=== PATIENT | male | born 1965 | race Caucasian/White ===

== ENCOUNTER 2019-07-12 19:00 | Observation (INO) ==
--- NOTE | 2019-07-12 19:30 | DR.GENAD ---
HPI Time Seen Time Seen by Provider: 07/12/19 19:29 PMH PMH Past Medical History: Arthritis, GERD, Hypertension and Sleep Apnea Past Surgical History: Yes Surgical History: Appendectomy and Cholecystectomy Social History Do you use any recreational Drugs:: No infectious screening Isolation: Standard PE Vital Signs Vitals: Temperature 97.7 F Pulse Rate 70 Respiratory Rate 20 Blood Pressure [Left Arm] 148/86 Blood Pressure 119/71 O2 Sat by Pulse Oximetry 96 ROR Labs Reviewed Result Diagrams: 07/12/19 19:40 07/12/19 19:40 Laboratory: WBC 9.6 X10^3/uL (3.6-10.0) 07/12/19 19:40 RBC 4.38 X10^6/uL (4.7-6.0) L 07/12/19 19:40 Hgb 13.5 g/dL (13.5-18.0) 07/12/19 19:40 Hct 37.9 % (42.0-54.0) L 07/12/19 19:40 MCV 86.6 fL (80.0-100.0) 07/12/19 19:40 MCH 30.8 pg (27.0-34.0) 07/12/19 19:40 MCHC 35.6 g/dL (33.0-35.0) H 07/12/19 19:40 RDW 12.5 % (11.6-16.5) 07/12/19 19:40 Plt Count 295 X10^3/uL (150.0-450.0) 07/12/19 19:40 MPV 7.1 fL (7.4-11.0) L 07/12/19 19:40 Neut % (Auto) 71.8 % (42.0-75.0) 07/12/19 19:40 Lymph % (Auto) 21.2 % (21.0-51.0) 07/12/19 19:40 [place] % (Auto) 6.4 % (0.0-13.0) 07/12/19 19:40 Eos % (Auto) 0.5 % (0.9-2.9) L 07/12/19 19:40 Baso % (Auto) 0.1 % (0.2-1.0) L 07/12/19 19:40 Neut # (Auto) 6.9 x10^3/uL (2.2-4.8) H 07/12/19 19:40 Lymph # (Auto) 2.0 X10^3/uL (1.3-2.9) 07/12/19 19:40 [place] # (Auto) 0.6 x10^3/uL (0.3-0.8) 07/12/19 19:40 Eos # (Auto) 0.0 x10^3/uL (0.0-0.2) 07/12/19 19:40 Baso # (Auto) 0.0 X10^3/uL (0.0-0.1) 07/12/19 19:40 Absolute Nucleated RBC 0.0 /100WBC 07/12/19 19:40 Sodium 130 mmol/L (136-145) L 07/12/19 19:40 Corrected Sodium TNP 07/12/19 19:40 Potassium 3.6 mmol/L (3.5-5.1) 07/12/19 19:40 Chloride 91 mmol/L (98-107) L 07/12/19 19:40 Carbon Dioxide 24.9 mmol/L (21-32) 07/12/19 19:40 BUN 50 mg/dL (7-18) H 07/12/19 19:40 Creatinine 4.09 mg/dL (0.70-1.30) H 07/12/19 19:40 Est GFR (MDRD) Af Amer 20 (>60) L 07/12/19 19:40 Est GFR (MDRD) Non-Af 16 (>60) L 07/12/19 19:40 Glucose 110 mg/dL (65-99) H 07/12/19 19:40 Calcium 8.8 mg/dL (8.5-10.1) 07/12/19 19:40 Corrected Calcium TNP 07/12/19 19:40 Total Bilirubin 0.40 mg/dL (0.2-1.0) 07/12/19 19:40 AST 13 Units/L (15-37) L 07/12/19 19:40 ALT 16 Units/L (12-78) 07/12/19 19:40 Alkaline Phosphatase 168 Units/L (46-116) H 07/12/19 19:40 Creatine Kinase 197 Units/L (39-308) 07/12/19 19:40 CK-MB (CK-2) 3.7 ng/mL (0-4.0) 07/12/19 19:40 CK/CKMB % Calc 1.9 % (<4) 07/12/19 19:40 Troponin I < 0.02 ng/mL (0-1.5) 07/12/19 19:40 Total Protein 8.6 g/dL (6.4-8.2) H 07/12/19 19:40 Albumin 4.7 g/dL (3.4-5.0) 07/12/19 19:40 Globulin 3.9 g/dL (2.5-4.5) 07/12/19 19:40 Albumin/Globulin Ratio 1.2 Ratio (1.1-2.1) 07/12/19 19:40 Opioid Opioid Risk Tool Age ([place] if 16-45): No Total: 0 Total Score Risk Category: Low Risk Copyright: Ángel ROBERTSON predicting aberrant behaviors Diagnosis Discharge Problem: Severe dehydration, Acute hypotension Acute renal failure Qualifiers: Acute renal failure type: unspecified Qualified Code(s): N17.9 - Acute kidney failure, unspecified Instructions Forms: Excuse From Work
[2019-07-12] MEDS ORDERED: NS 1000 ML 1,000 ML ONE ×2 (19:34→20:43)
[2019-07-12] MEDS ORDERED: NS 1000 ML 1,000 ML IV ONE ×2 (19:47→20:44)
[2019-07-12 19:51] LABS: BASOPHILS % (AUTO) 0.1 % (0.2-1.0); EOSINOPHILS % (AUTO) 0.5 % (0.9-2.9); HEMATOCRIT 37.9 % (42.0-54.0); HEMOGLOBIN 13.5 g/dL (13.5-18.0); LYMPHOCYTES % (AUTO) 21.2 % (21.0-51.0); MEAN CORPUSCULAR HEMOGLOBIN 30.8 pg (27.0-34.0); MEAN CORPUSCULAR HGB CONC 35.6 g/dL (33.0-35.0); MEAN CORPUSCULAR VOLUME 86.6 fL (80.0-100.0); MEAN PLATELET VOLUME 7.1 fL (7.4-11.0); MONOCYTES # (AUTO) 0.6 x10^3/uL (0.3-0.8); MONOCYTES % (AUTO) 6.4 % (0.0-13.0); NEUTROPHILS # (AUTO) 6.9 x10^3/uL (2.2-4.8); NEUTROPHILS % (AUTO) 71.8 % (42.0-75.0); PLATELET COUNT 295 X10^3/uL (150.0-450.0); RED BLOOD COUNT 4.38 X10^6/uL (4.7-6.0); RED CELL DISTRIBUTION WIDTH 12.5 % (11.6-16.5); WHITE BLOOD COUNT 9.6 X10^3/uL (3.6-10.0)
--- NOTE | 2019-07-12 20:05 | RAD ---
Chest AP portable Indication: Dyspnea Comparison: 04/17/2019 Findings: There is no pneumothorax or effusion. There is no consolidation. Heart size is normal. Lungs are mildly hyperinflated. Impression: No acute chest process. Mild hyperinflation of COPD. Reported By:
[2019-07-12 20:06] LABS: BLOOD UREA NITROGEN 50 mg/dL (7-18); CALCIUM 8.8 mg/dL (8.5-10.1); CARBON DIOXIDE 24.9 mmol/L (21-32); CHLORIDE 91 mmol/L (98-107); CREATININE 4.09 mg/dL (0.70-1.30); SODIUM 130 mmol/L (136-145); TROPONIN I < 0.02 ng/mL (0-1.5); eGFR NON BLACK RACES 16 (>60)
[2019-07-12 20:19] LABS: ALANINE AMINOTRANSFERASE 16 Units/L (12-78); ALBUMIN 4.7 g/dL (3.4-5.0); ALKALINE PHOSPHATASE 168 Units/L (46-116); ASPARTATE AMINO TRANSFERASE 13 Units/L (15-37); CKMB % 1.9 % (<4); CREATINE KINASE 197 Units/L (39-308); CREATINE KINASE MB 3.7 ng/mL (0-4.0); TOTAL PROTEIN 8.6 g/dL (6.4-8.2)
[2019-07-12 23:31] LABS: CKMB % 1.7 % (<4); CREATINE KINASE 147 Units/L (39-308); CREATINE KINASE MB 2.5 ng/mL (0-4.0); TROPONIN I < 0.02 ng/mL (0-1.5)
[2019-07-13 01:20] LABS: BILIRUBIN,URINE NEGATIVE (NEGATIVE); BLOOD/HEMOGLOBIN,URINE 3+ (NEGATIVE); GLUCOSE, URINE NEGATIVE (NEGATIVE); KETONES,URINE NEGATIVE (NEGATIVE); LEUKOCYTE ESTERASE ,URINE NEGATIVE (NEGATIVE); NITRITES,URINE NEGATIVE (NEGATIVE); PROTEIN,URINE 2+ (NEGATIVE); UROBILINOGEN,URINE NORMAL (NORMAL)
[2019-07-13 01:28] LABS: APPEARANCE,URINE CLEAR (CLEAR); BACTERIA,URINE NEGATIVE /HPF (NEGATIVE); COLOR,URINE YELLOW (YELLOW); RBC,URINE 0-2 /HPF (0-3); SQUAMOUS EPITHELIAL CELL,UR RARE /HPF (NEGATIVE)
[2019-07-13 02:04] VITALS: BMI 24.0
[2019-07-13] MEDS: NICOTINE PATCH TD SCH ×2 (02:09→09:10)
[2019-07-13 05:19] LABS: BASOPHILS % (AUTO) 0.2 % (0.2-1.0); EOSINOPHILS # (AUTO) 0.1 x10^3/uL (0.0-0.2); EOSINOPHILS % (AUTO) 0.9 % (0.9-2.9); HEMOGLOBIN 11.7 g/dL (13.5-18.0); LYMPHOCYTES # (AUTO) 3.2 X10^3/uL (1.3-2.9); LYMPHOCYTES % (AUTO) 43.8 % (21.0-51.0); MEAN CORPUSCULAR HEMOGLOBIN 30.3 pg (27.0-34.0); MEAN CORPUSCULAR HGB CONC 34.4 g/dL (33.0-35.0); MEAN PLATELET VOLUME 7.8 fL (7.4-11.0); MONOCYTES # (AUTO) 0.5 x10^3/uL (0.3-0.8); MONOCYTES % (AUTO) 7.2 % (0.0-13.0); NEUTROPHILS # (AUTO) 3.4 x10^3/uL (2.2-4.8); NEUTROPHILS % (AUTO) 47.9 % (42.0-75.0); PLATELET COUNT 237 X10^3/uL (150.0-450.0); RED BLOOD COUNT 3.86 X10^6/uL (4.7-6.0); RED CELL DISTRIBUTION WIDTH 12.7 % (11.6-16.5); WHITE BLOOD COUNT 7.2 X10^3/uL (3.6-10.0)
[2019-07-13 05:45] LABS: ALANINE AMINOTRANSFERASE 12 Units/L (12-78); ALBUMIN 3.6 g/dL (3.4-5.0); ALKALINE PHOSPHATASE 135 Units/L (46-116); ASPARTATE AMINO TRANSFERASE 8 Units/L (15-37); BLOOD UREA NITROGEN 39 mg/dL (7-18); CALCIUM 7.8 mg/dL (8.5-10.1); CARBON DIOXIDE 26.1 mmol/L (21-32); CHLORIDE 104 mmol/L (98-107); CKMB % 1.8 % (<4); CREATINE KINASE 135 Units/L (39-308); CREATINE KINASE MB 2.4 ng/mL (0-4.0); CREATININE 1.95 mg/dL (0.70-1.30); SODIUM 139 mmol/L (136-145); TOTAL PROTEIN 6.9 g/dL (6.4-8.2); TROPONIN I < 0.02 ng/mL (0-1.5); eGFR NON BLACK RACES 39 (>60)
[2019-07-13] MEDS: NS 1000 ML 1,000 ML IV SCH ×3 (06:53→14:03)
[2019-07-13] MEDS ORDERED: POTASSIUM CHL 40 MEQ/NS 0.45% 500 ML IV PRN (08:22)
[2019-07-13] MEDS ORDERED: POTASSIUM CHLORIDE LIQ 20 MEQ UDC PO PRN (08:22)
[2019-07-13] MEDS ORDERED: K-RIDER 10 MEQ/NS 100 ML 10 MEQ/100 ML BAG IV PRN (08:22)
[2019-07-13] MEDS ORDERED: K-DUR TAB 20 MEQ PO PRN (08:22)
[2019-07-13] MEDS ORDERED: POTASSIUM CHL 60 MEQ/NS 0.45% 500 ML IV PRN (08:22)
[2019-07-13] MEDS ORDERED: KLOR-CON PO PRN (08:22)
[2019-07-13] MEDS ORDERED: MICRO K EXTEN CAP 10 MEQ PO PRN (08:22)
[2019-07-13] MEDS: CHECK PATCH XX SCH ×2 (09:11→21:10)
[2019-07-13] MEDS ORDERED: MAG-OX TAB ONE (10:40)
[2019-07-13] MEDS ORDERED: K-DUR TAB 20 MEQ PO ONE (10:40)
[2019-07-13] MEDS ORDERED: ZOFRAN TAB 4 MG ONE (10:40)
[2019-07-13] MEDS: MAG-OX TAB PO SCH (10:42)
[2019-07-13] MEDS: ZOFRAN TAB 4 MG SL PRN (10:42)
--- NOTE | 2019-07-13 13:54 | DR.H&P ---
H&P History & Physical for Day of: H&P Date: 07/13/19 Chief Complaint Chief Complaint: Dizziness and fatigue Allergies Allergies Allergy/AdvReac Type Severity Reaction Status Date / Time No Known Drug Allergies Allergy Verified 07/12/19 20:11 [NKDA] History of Present Illness History of Present Illness: Pt presenting after having dizziness and generalized weakness. 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 He noticed feeling dizzy when he would stand up that became progressively worse and also started to feel cramping in his muscles. Denies fever, chills, chest pain, shortness of breath, abdominal pain, edema. Past Medical History Past Medical History: Arthritis, GERD, Hypertension and Sleep Apnea Past Surgical History Surgical History: Appendectomy and Cholecystectomy Family History Family Medical History: Diabetes Mellitus, Cancer and Hypertension Social History Does patient currently use any type of tobacco product: Yes Have you used tobacco products in the last 12 months: Yes Type of Tobacco Use: Cigarettes How many years tobacco product used: 30 Does any household member use tobacco: No Alcohol Use: None Drug Use: None Medications Home Medications: No Known Drug Allergies [NKDA] Allergy (Verified 07/12/19 20:11) CONTINUE taking the following medications hydrocodone-acetaminophen 1 tab PO QID PRN 07/12/19 [History] metoprolol succinate 100 mg PO DAILY 07/13/19 [History] pantoprazole [Protonix] 40 mg PO DAILY 07/13/19 [History] Labs Result Diagrams: 07/13/19 04:03 07/13/19 04:03 Labs: Laboratory WBC 7.2 X10^3/uL (3.6-10.0) 07/13/19 04:03 RBC 3.86 X10^6/uL (4.7-6.0) L 07/13/19 04:03 Hgb 11.7 g/dL (13.5-18.0) L 07/13/19 04:03 Hct 34.0 % (42.0-54.0) L 07/13/19 04:03 MCV 88.0 fL (80.0-100.0) 07/13/19 04:03 MCH 30.3 pg (27.0-34.0) 07/13/19 04:03 MCHC 34.4 g/dL (33.0-35.0) 07/13/19 04:03 RDW 12.7 % (11.6-16.5) 07/13/19 04:03 Plt Count 237 X10^3/uL (150.0-450.0) 07/13/19 04:03 MPV 7.8 fL (7.4-11.0) 07/13/19 04:03 Neut % (Auto) 47.9 % (42.0-75.0) 07/13/19 04:03 Lymph % (Auto) 43.8 % (21.0-51.0) 07/13/19 04:03 [place] % (Auto) 7.2 % (0.0-13.0) 07/13/19 04:03 Eos % (Auto) 0.9 % (0.9-2.9) 07/13/19 04:03 Baso % (Auto) 0.2 % (0.2-1.0) 07/13/19 04:03 Neut # (Auto) 3.4 x10^3/uL (2.2-4.8) 07/13/19 04:03 Lymph # (Auto) 3.2 X10^3/uL (1.3-2.9) H 07/13/19 04:03 [place] # (Auto) 0.5 x10^3/uL (0.3-0.8) 07/13/19 04:03 Eos # (Auto) 0.1 x10^3/uL (0.0-0.2) 07/13/19 04:03 Baso # (Auto) 0.0 X10^3/uL (0.0-0.1) 07/13/19 04:03 Absolute Nucleated RBC 0.0 /100WBC 07/13/19 04:03 Sodium 139 mmol/L (136-145) 07/13/19 04:03 Corrected Sodium TNP 07/13/19 04:03 Potassium 3.7 mmol/L (3.5-5.1) 07/13/19 04:03 Chloride 104 mmol/L (98-107) 07/13/19 04:03 Carbon Dioxide 26.1 mmol/L (21-32) 07/13/19 04:03 BUN 39 mg/dL (7-18) H 07/13/19 04:03 Creatinine 1.95 mg/dL (0.70-1.30) H 07/13/19 04:03 Est GFR (MDRD) Af Amer 47 (>60) L 07/13/19 04:03 Est GFR (MDRD) Non-Af 39 (>60) L 07/13/19 04:03 Glucose 76 mg/dL (65-99) 07/13/19 04:03 Calcium 7.8 mg/dL (8.5-10.1) L 07/13/19 04:03 Corrected Calcium TNP 07/13/19 04:03 Magnesium 1.8 mg/dL (1.7-2.9) 07/13/19 04:03 Total Bilirubin 0.20 mg/dL (0.2-1.0) 07/13/19 04:03 AST 8 Units/L (15-37) L 07/13/19 04:03 ALT 12 Units/L (12-78) 07/13/19 04:03 Alkaline Phosphatase 135 Units/L (46-116) H 07/13/19 04:03 Creatine Kinase 135 Units/L (39-308) 07/13/19 04:03 CK-MB (CK-2) 2.4 ng/mL (0-4.0) 07/13/19 04:03 CK/CKMB % Calc 1.8 % (<4) 07/13/19 04:03 Troponin I < 0.02 ng/mL (0-1.5) 07/13/19 04:03 Total Protein 6.9 g/dL (6.4-8.2) 07/13/19 04:03 Albumin 3.6 g/dL (3.4-5.0) 07/13/19 04:03 Globulin 3.3 g/dL (2.5-4.5) 07/13/19 04:03 Albumin/Globulin Ratio 1.1 Ratio (1.1-2.1) 07/13/19 04:03 Specimen Type Clean catch urine 07/13/19 00:55 Urine Color Yellow (YELLOW) 07/13/19 00:55 Urine Appearance Clear (CLEAR) 07/13/19 00:55 Urine pH 5.0 (5.0 - 8.0) 07/13/19 00:55 Ur Specific [place] 1.015 (1.000-1.030) 07/13/19 00:55 Urine Protein 2+ (NEGATIVE) 07/13/19 00:55 Urine Glucose (UA) Negative (NEGATIVE) 07/13/19 00:55 Urine Ketones Negative (NEGATIVE) 07/13/19 00:55 Urine Occult Blood 3+ (NEGATIVE) 07/13/19 00:55 Urine Nitrite Negative (NEGATIVE) 07/13/19 00:55 Urine Bilirubin Negative (NEGATIVE) 07/13/19 00:55 Urine Urobilinogen Normal (NORMAL) 07/13/19 00:55 Ur Leukocyte Esterase Negative (NEGATIVE) 07/13/19 00:55 Urine RBC 0-2 /HPF (0-3) 07/13/19 00:55 Urine WBC None seen /HPF (0-5) 07/13/19 00:55 Ur Squamous Epith Cells Rare /HPF (NEGATIVE) 07/13/19 00:55 Urine Bacteria Negative /HPF (NEGATIVE) 07/13/19 00:55 Ur Culture Indicated? No/not indicated 07/13/19 00:55 Review of Systems Constitutional: denies Fever and Chills Eyes: No Symptoms Reported ENT: No Symptoms Reported Respiratory: No Symptoms Reported Cardiovascular: No Symptoms Reported Genitourinary: No Symptoms Reported Musculoskeletal: Neck Pain (chronic) Skin: No Symptoms Reported Neurological: Weakness Physical Exam Vital Signs: Temperature 98.1 F Pulse Rate [Left Brachial] 72 Pulse Rate 70 Respiratory Rate 18 Blood Pressure [Left Arm] 143/69 Blood Pressure 111/62 O2 Sat by Pulse Oximetry 99 Oriented: Normal Eyes: Normal Respiratory: Clear Throughout Cardiovascular: Normal Auscultation: Bowel Sounds: Normal Palpation: Normal Tenderness: Normal Skin: Normal Musculoskeletal: Normal Mood Description: Calm Assessment/Plan (1) Severe dehydration: Status: Acute Plan: Pt received 2L IVF NS bolus in ED. Responded well. Currently NS@150ml/h. Orthostatic negative. Continue hydration, electrolyte replacement. (2) Acute renal failure: Qualifiers: Acute renal failure type: unspecified Qualified Code(s): N17.9 - Acute kidney failure, unspecified Status: Acute Plan: Pre-renal d/t dehydration. Cr:4.09>1.95, trending down. Continue hydration. Hold lisinopril and other nephrotoxic medications. (3) Acute hypotension: Status: Acute Plan: Resolved with hydration. Resume metoprolol. Continue to hold lisinopril and amlodipine. (4) Knee pain, bilateral: Qualifiers: Chronicity: acute Qualified Code(s): M25.561 - Pain in right knee; M25.562 - Pain in left knee Status: Acute (5) GERD (gastroesophageal reflux disease): Status: Acute (6) Sleep apnea: Status: Acute
[2019-07-13] MEDS: NORCO 10/325 TAB PO PRN ×2 (14:03→21:09)
[2019-07-13] MEDS: PROTONIX TAB 40 MG PO SCH (14:03)
[2019-07-14] MEDS: NS 1000 ML 1,000 ML IV SCH (00:33)
[2019-07-14] MEDS: ZOFRAN TAB 4 MG SL PRN (01:56)
[2019-07-14] MEDS: NORCO 10/325 TAB PO PRN ×2 (03:58→09:35)
[2019-07-14 05:18] LABS: BASOPHILS % (AUTO) 0.2 % (0.2-1.0); EOSINOPHILS # (AUTO) 0.1 x10^3/uL (0.0-0.2); EOSINOPHILS % (AUTO) 1.1 % (0.9-2.9); HEMATOCRIT 29.4 % (42.0-54.0); HEMOGLOBIN 10.4 g/dL (13.5-18.0); LYMPHOCYTES # (AUTO) 3.1 X10^3/uL (1.3-2.9); LYMPHOCYTES % (AUTO) 45.8 % (21.0-51.0); MEAN CORPUSCULAR HEMOGLOBIN 31.1 pg (27.0-34.0); MEAN CORPUSCULAR HGB CONC 35.4 g/dL (33.0-35.0); MEAN CORPUSCULAR VOLUME 87.9 fL (80.0-100.0); MEAN PLATELET VOLUME 7.6 fL (7.4-11.0); MONOCYTES # (AUTO) 0.4 x10^3/uL (0.3-0.8); MONOCYTES % (AUTO) 5.9 % (0.0-13.0); NEUTROPHILS # (AUTO) 3.2 x10^3/uL (2.2-4.8); PLATELET COUNT 209 X10^3/uL (150.0-450.0); RED BLOOD COUNT 3.35 X10^6/uL (4.7-6.0); RED CELL DISTRIBUTION WIDTH 12.7 % (11.6-16.5); WHITE BLOOD COUNT 6.8 X10^3/uL (3.6-10.0)
[2019-07-14 05:21] LABS: BLOOD UREA NITROGEN 13 mg/dL (7-18); CALCIUM 7.8 mg/dL (8.5-10.1); CARBON DIOXIDE 27.1 mmol/L (21-32); CHLORIDE 107 mmol/L (98-107); MAGNESIUM 1.4 mg/dL (1.7-2.9); SODIUM 140 mmol/L (136-145); eGFR NON BLACK RACES > 60 (>60)
[2019-07-14 08:41] VITALS: BP 141/79
[2019-07-14] MEDS ORDERED: TOPROL XL PO SCH (09:00)
[2019-07-14] MEDS ORDERED: TOPROL XL PO ONE (09:01)
[2019-07-14] MEDS: MAG-OX TAB PO SCH (09:35)
[2019-07-14] MEDS: PROTONIX TAB 40 MG PO SCH (09:35)
[2019-07-14] MEDS: NICOTINE PATCH TD SCH (09:37)
[2019-07-14] MEDS: CHECK PATCH XX SCH (09:39)
--- NOTE | 2019-07-16 15:41 | PCM.PROG ---
Progress Note Progress Note for Day of Date of Exam: 07/14/19 Subjective Subjective: Patient doing well, no acute events overnight. Denies dizziness or lightheadedness with ambulation. Denies N/V/D or abdominal pain. Past Medical Family Social History Past Med/Fam/Surg Hx: No changes since H&P Allergies: Allergies No Known Drug Allergies [NKDA] Allergy (Verified 07/12/19 20:11) Review of Systems ROS: No change since H&P Vital Signs and I&O's Vital Signs: Temperature 97.7 F Pulse Rate [Left Brachial] 108 Pulse Rate 70 Respiratory Rate 20 Blood Pressure [Left Arm] 141/79 Blood Pressure 111/62 O2 Sat by Pulse Oximetry 97 Intake and Output: Intake & Output 07/13/19 07/14/19 07/15/19 07/16/19 23:59 23:59 23:59 23:59 Intake Total 4170 / 4170 1290 / 1290 Output Total 1000 / 1000 800 / 800 Balance 3170 / 3170 490 / 490 Physical Exam Oriented: Normal Eyes: Normal Respiratory: Normal Cardiovascular: Normal Auscultation: Bowel Sounds: Normal Tenderness: Normal Skin: Normal Musculoskeletal: Normal Mood Description: Calm Speech Pattern: Clear and Appropriate Laboratory and Diagnostics Result Diagrams: 07/14/19 04:00 07/14/19 04:00 Labs: Laboratory WBC 6.8 X10^3/uL (3.6-10.0) 07/14/19 04:00 RBC 3.35 X10^6/uL (4.7-6.0) L 07/14/19 04:00 Hgb 10.4 g/dL (13.5-18.0) L 07/14/19 04:00 Hct 29.4 % (42.0-54.0) L 07/14/19 04:00 MCV 87.9 fL (80.0-100.0) 07/14/19 04:00 MCH 31.1 pg (27.0-34.0) 07/14/19 04:00 MCHC 35.4 g/dL (33.0-35.0) H 07/14/19 04:00 RDW 12.7 % (11.6-16.5) 07/14/19 04:00 Plt Count 209 X10^3/uL (150.0-450.0) 07/14/19 04:00 MPV 7.6 fL (7.4-11.0) 07/14/19 04:00 Neut % (Auto) 47.0 % (42.0-75.0) 07/14/19 04:00 Lymph % (Auto) 45.8 % (21.0-51.0) 07/14/19 04:00 [place] % (Auto) 5.9 % (0.0-13.0) 07/14/19 04:00 Eos % (Auto) 1.1 % (0.9-2.9) 07/14/19 04:00 Baso % (Auto) 0.2 % (0.2-1.0) 07/14/19 04:00 Neut # (Auto) 3.2 x10^3/uL (2.2-4.8) 07/14/19 04:00 Lymph # (Auto) 3.1 X10^3/uL (1.3-2.9) H 07/14/19 04:00 [place] # (Auto) 0.4 x10^3/uL (0.3-0.8) 07/14/19 04:00 Eos # (Auto) 0.1 x10^3/uL (0.0-0.2) 07/14/19 04:00 Baso # (Auto) 0.0 X10^3/uL (0.0-0.1) 07/14/19 04:00 Absolute Nucleated RBC 0.0 /100WBC 07/14/19 04:00 Sodium 140 mmol/L (136-145) 07/14/19 04:00 Corrected Sodium TNP 07/14/19 04:00 Potassium 4.2 mmol/L (3.5-5.1) 07/14/19 04:00 Chloride 107 mmol/L (98-107) 07/14/19 04:00 Carbon Dioxide 27.1 mmol/L (21-32) 07/14/19 04:00 BUN 13 mg/dL (7-18) 07/14/19 04:00 Creatinine 0.80 mg/dL (0.70-1.30) 07/14/19 04:00 Est GFR (MDRD) Af Amer > 60 (>60) 07/14/19 04:00 Est GFR (MDRD) Non-Af > 60 (>60) 07/14/19 04:00 Glucose 84 mg/dL (65-99) 07/14/19 04:00 Calcium 7.8 mg/dL (8.5-10.1) L 07/14/19 04:00 Corrected Calcium TNP 07/13/19 04:03 Magnesium 1.4 mg/dL (1.7-2.9) L 07/14/19 04:00 Total Bilirubin 0.20 mg/dL (0.2-1.0) 07/13/19 04:03 AST 8 Units/L (15-37) L 07/13/19 04:03 ALT 12 Units/L (12-78) 07/13/19 04:03 Alkaline Phosphatase 135 Units/L (46-116) H 07/13/19 04:03 Creatine Kinase 135 Units/L (39-308) 07/13/19 04:03 CK-MB (CK-2) 2.4 ng/mL (0-4.0) 07/13/19 04:03 CK/CKMB % Calc 1.8 % (<4) 07/13/19 04:03 Troponin I < 0.02 ng/mL (0-1.5) 07/13/19 04:03 Total Protein 6.9 g/dL (6.4-8.2) 07/13/19 04:03 Albumin 3.6 g/dL (3.4-5.0) 07/13/19 04:03 Globulin 3.3 g/dL (2.5-4.5) 07/13/19 04:03 Albumin/Globulin Ratio 1.1 Ratio (1.1-2.1) 07/13/19 04:03 Specimen Type Clean catch urine 07/13/19 00:55 Urine Color Yellow (YELLOW) 07/13/19 00:55 Urine Appearance Clear (CLEAR) 07/13/19 00:55 Urine pH 5.0 (5.0 - 8.0) 07/13/19 00:55 Ur Specific [place] 1.015 (1.000-1.030) 07/13/19 00:55 Urine Protein 2+ (NEGATIVE) 07/13/19 00:55 Urine Glucose (UA) Negative (NEGATIVE) 07/13/19 00:55 Urine Ketones Negative (NEGATIVE) 07/13/19 00:55 Urine Occult Blood 3+ (NEGATIVE) 07/13/19 00:55 Urine Nitrite Negative (NEGATIVE) 07/13/19 00:55 Urine Bilirubin Negative (NEGATIVE) 07/13/19 00:55 Urine Urobilinogen Normal (NORMAL) 07/13/19 00:55 Ur Leukocyte Esterase Negative (NEGATIVE) 07/13/19 00:55 Urine RBC 0-2 /HPF (0-3) 07/13/19 00:55 Urine WBC None seen /HPF (0-5) 07/13/19 00:55 Ur Squamous Epith Cells Rare /HPF (NEGATIVE) 07/13/19 00:55 Urine Bacteria Negative /HPF (NEGATIVE) 07/13/19 00:55 Ur Culture Indicated? No/not indicated 07/13/19 00:55 Plan (1) Severe dehydration: Status: Acute Plan: Pt received 2L IVF NS bolus in the ED. Responded well. Orthostatic negative. BP and electrolytes stable. Patient ready for discharge. Will hold lis inopril due to [place]. Follow up with PCP in one week. (2) Acute renal failure: Status: Acute Qualifiers: Acute renal failure type: unspecified Qualified Code(s): N17.9 - Acute kidney failure, unspecified Plan: Pre-renal d/t dehydration. Resolved. Hold lisinopril and other nephrotoxic medications. (3) Acute hypotension: Status: Acute Plan: Resolved with hydration. Continue metoprolol, resume amlodipine. (4) Knee pain, bilateral: Status: Chronic Qualifiers: Chronicity: acute Qualified Code(s): M25.561 - Pain in right knee; M25.562 - Pain in left knee (5) GERD (gastroesophageal reflux disease): Status: Acute (6) Sleep apnea: Status: Acute
--- NOTE | 2019-07-16 16:28 | W.DIS.FURT ---
Summary of Discharge Discharge Summary of Date Date of Exam: 07/14/19 Admission Diagnosis Hospital Course: Pt presenting after having dizziness and generalized weakness. 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 He noticed feeling dizzy when he would stand up that became progressively worse and also started to feel cramping in his muscles. Denies fever, chills, chest pain, shortness of breath, abdominal pain, edema. He was found to be hypotensive due to dehydration which resolved with normal saline. His anti-hypertensives were on hold due to [place] and hypotension. He had acute renal failure with Cr around 4 which resolved with hydration. His orthostatic vitals were normal prior to discharge. He felt a lot better and was stable to go home. He was told to hold lisinopril until seen by PCP this week. He can resume all his other medications. Vital Signs: Vital Signs (72 hours) 07/13/19 20:00 07/13/19 21:09 07/13/19 22:09 Temperature 98.0 F Pulse Rate [Left Brachial] 75 Respiratory Rate 18 18 18 Blood Pressure [Left Arm] 117/59 O2 Sat by Pulse Oximetry 97 07/14/19 00:00 07/14/19 03:58 07/14/19 04:00 Temperature 97.9 F 97.5 F L Pulse Rate [Left Brachial] 70 70 Respiratory Rate 18 18 18 Blood Pressure [Left Arm] 127/62 153/76 O2 Sat by Pulse Oximetry 98 99 07/14/19 04:58 07/14/19 08:00 07/14/19 09:35 Temperature 97.7 F Pulse Rate [Left Brachial] 108 H Respiratory Rate 18 18 20 Blood Pressure [Left Arm] 141/79 O2 Sat by Pulse Oximetry 97 Labs: Laboratory Last Values WBC 6.8 X10^3/uL (3.6-10.0) 07/14/19 04:00 RBC 3.35 X10^6/uL (4.7-6.0) L 07/14/19 04:00 Hgb 10.4 g/dL (13.5-18.0) L 07/14/19 04:00 Hct 29.4 % (42.0-54.0) L 07/14/19 04:00 MCV 87.9 fL (80.0-100.0) 07/14/19 04:00 MCH 31.1 pg (27.0-34.0) 07/14/19 04:00 MCHC 35.4 g/dL (33.0-35.0) H 07/14/19 04:00 RDW 12.7 % (11.6-16.5) 07/14/19 04:00 Plt Count 209 X10^3/uL (150.0-450.0) 07/14/19 04:00 MPV 7.6 fL (7.4-11.0) 07/14/19 04:00 Neut % (Auto) 47.0 % (42.0-75.0) 07/14/19 04:00 Lymph % (Auto) 45.8 % (21.0-51.0) 07/14/19 04:00 [place] % (Auto) 5.9 % (0.0-13.0) 07/14/19 04:00 Eos % (Auto) 1.1 % (0.9-2.9) 07/14/19 04:00 Baso % (Auto) 0.2 % (0.2-1.0) 07/14/19 04:00 Neut # (Auto) 3.2 x10^3/uL (2.2-4.8) 07/14/19 04:00 Lymph # (Auto) 3.1 X10^3/uL (1.3-2.9) H 07/14/19 04:00 [place] # (Auto) 0.4 x10^3/uL (0.3-0.8) 07/14/19 04:00 Eos # (Auto) 0.1 x10^3/uL (0.0-0.2) 07/14/19 04:00 Baso # (Auto) 0.0 X10^3/uL (0.0-0.1) 07/14/19 04:00 Absolute Nucleated RBC 0.0 /100WBC 07/14/19 04:00 Sodium 140 mmol/L (136-145) 07/14/19 04:00 Corrected Sodium TNP 07/14/19 04:00 Potassium 4.2 mmol/L (3.5-5.1) 07/14/19 04:00 Chloride 107 mmol/L (98-107) 07/14/19 04:00 Carbon Dioxide 27.1 mmol/L (21-32) 07/14/19 04:00 BUN 13 mg/dL (7-18) 07/14/19 04:00 Creatinine 0.80 mg/dL (0.70-1.30) 07/14/19 04:00 Est GFR (MDRD) Af Amer > 60 (>60) 07/14/19 04:00 Est GFR (MDRD) Non-Af > 60 (>60) 07/14/19 04:00 Glucose 84 mg/dL (65-99) 07/14/19 04:00 Calcium 7.8 mg/dL (8.5-10.1) L 07/14/19 04:00 Corrected Calcium TNP 07/13/19 04:03 Magnesium 1.4 mg/dL (1.7-2.9) L 07/14/19 04:00 Total Bilirubin 0.20 mg/dL (0.2-1.0) 07/13/19 04:03 AST 8 Units/L (15-37) L 07/13/19 04:03 ALT 12 Units/L (12-78) 07/13/19 04:03 Alkaline Phosphatase 135 Units/L (46-116) H 07/13/19 04:03 Creatine Kinase 135 Units/L (39-308) 07/13/19 04:03 CK-MB (CK-2) 2.4 ng/mL (0-4.0) 07/13/19 04:03 CK/CKMB % Calc 1.8 % (<4) 07/13/19 04:03 Troponin I < 0.02 ng/mL (0-1.5) 07/13/19 04:03 Total Protein 6.9 g/dL (6.4-8.2) 07/13/19 04:03 Albumin 3.6 g/dL (3.4-5.0) 07/13/19 04:03 Globulin 3.3 g/dL (2.5-4.5) 07/13/19 04:03 Albumin/Globulin Ratio 1.1 Ratio (1.1-2.1) 07/13/19 04:03 Specimen Type Clean catch urine 07/13/19 00:55 Urine Color Yellow (YELLOW) 07/13/19 00:55 Urine Appearance Clear (CLEAR) 07/13/19 00:55 Urine pH 5.0 (5.0 - 8.0) 07/13/19 00:55 Ur Specific [place] 1.015 (1.000-1.030) 07/13/19 00:55 Urine Protein 2+ (NEGATIVE) 07/13/19 00:55 Urine Glucose (UA) Negative (NEGATIVE) 07/13/19 00:55 Urine Ketones Negative (NEGATIVE) 07/13/19 00:55 Urine Occult Blood 3+ (NEGATIVE) 07/13/19 00:55 Urine Nitrite Negative (NEGATIVE) 07/13/19 00:55 Urine Bilirubin Negative (NEGATIVE) 07/13/19 00:55 Urine Urobilinogen Normal (NORMAL) 07/13/19 00:55 Ur Leukocyte Esterase Negative (NEGATIVE) 07/13/19 00:55 Urine RBC 0-2 /HPF (0-3) 07/13/19 00:55 Urine WBC None seen /HPF (0-5) 07/13/19 00:55 Ur Squamous Epith Cells Rare /HPF (NEGATIVE) 07/13/19 00:55 Urine Bacteria Negative /HPF (NEGATIVE) 07/13/19 00:55 Ur Culture Indicated? No/not indicated 07/13/19 00:55 Reason For Visit: SEVERE DEHYDRATION,ACUTE RENAL FAILURE Discharge Diagnosis All Active Problems (Updated 07/14/19 @ 12:33 by Loki Barksdale) Sleep apnea (Acute) GERD (gastroesophageal reflux disease) (Acute) Contusion of left knee, initial encounter (Chronic) Contusion of right knee, initial encounter (Chronic) Fall (Chronic) Knee pain, bilateral (Chronic) Joint effusion of knee (Chronic) Severe dehydration (Acute) Acute renal failure (Acute) Acute hypotension (Acute) Plan of Treatment: Continue with present treatment and follow up plan. Pt is to keep follow up appointment as instructed and take medications as ordered. Discharge Medications Discharge Medications: No Known Drug Allergies [NKDA] Allergy (Verified 07/12/19 20:11) CONTINUE taking the following medications hydrocodone-acetaminophen 1 tab PO QID PRN 07/12/19 [History] metoprolol succinate 100 mg PO DAILY 07/13/19 [History] pantoprazole [Protonix] 40 mg PO DAILY 07/13/19 [History] Follow up and Referral Follow Up: 1 Week (Dr. Brown) Discharge Disposition Discharge Disposition: Home
== END 2019-07-14 13:30 | disposition home or self-care (01) ==
LOC: MED/SURG 19:06 → ER 19:06 → MED/SURG 23:22
PROVIDERS: ADMIT Family Medicine; ATTEND Obstetrics & Gynecology Obstetrics
CPT/HCPCS: 36415; 71010; 71045; 80048; 80053; 81001; 82550; 82553; 83735; 84484; 85025; 93005; 94760; 96365; 96367; 96374; 99284; A4222; G0378; J7030; S0119; S0181

== ENCOUNTER 2020-05-23 14:48 | Observation (INO) ==
--- NOTE | 2020-05-23 17:30 | DR.CP ---
HPI - Time Seen Time seen: 17:27 - PCP Primary Care Physician: YOUNG - Complaint Chief Complaint Doctor Comments: Patient is complaining of dizziness when he stands for the past 3-4 days getting worst today. States he has been having dizziness and right sided chest pain. He has been working in a hot building and has been trying to drink liquids. He had chest pain last night but denies cold, cough, fever or chills. He smokes about 3-4 cigarettes daily but denies alcohol or drug usage. States he has had problems with dizziness before when he got dehydrated. Chief Complaint:: PATIENT STATES "IM DIZZY I JUST DONT FEEL GOOD I HURT ON THE RIGHT SIDE OF MY HEART. IT STARTED LASTNIGHT AT WORK" - COVID-19 Coronavirus risk:travel/contact w/high risk person: No Has patient experienced Coronavirus symptoms: No - Source History Provided: Patient - Mode of Arrival Mode of Arrival: Ambulatory - Timing Onset of Chief Complaint: 05/22/20 Came on: Gradually Pain: Present Now - Duration Duration: Intermittent How lon Duration: Days - Location Location of Chest Pain: Right, Chest Chest Pain Radiation Location: None - Context Onset: At rest Cardiac Risk Factors: Smoker PE Risk Factors: None History of: Similar pain in the past Prehospital Care: None - Quality Quality: Sharp - Modifying Factors Worsens: Nothing Impoves: Nothing - Associated Signs and Symptoms Associated Signs and Symptoms: None PMH - PMH Past Medical History: Yes Past Medical History: Hypertension, GERD Past Surgical History: Yes Surgical History: Appendectomy, Cholecystectomy - Family History History of Family Medical Conditions: Yes Family Medical History: Diabetes Mellitus, Cancer, Hypertension - Social History Alcohol Use: None Do you use any recreational Drugs:: No - Travel Risk Coronavirus risk:travel/contact w/high risk person: No Has patient experienced Coronavirus symptoms: No - infectious screening Have you traveled outside the country in the last 6 months?: No Isolation: Standard ROS - Review of Systems Constitutional: No Symptoms Reported, Loss of Appetite Eyes: No Symptoms Reported ENTM: No Symptoms Reported Respiratoy: No Symptoms Reported. negative: See HPI, Productive Cough, Non- Productive Cough, Moist Cough, Dry Cough, Hacking Cough, Barking Cough, Brassy Cough, Orthopnea, Short of Breath, Stridor, Wheezing, Hemoptysis, Other Cardiovascular: No Symptoms Reported, Chest Pain Gastrointestinal/Abdominal: No Symptoms Reported. negative: See HPI, Abdominal Pain, Constipation, Diarrhea, Nausea, Vomiting, Food Intolerance, Other Genitourinary: No Symptoms Reported. negative: See HPI, Discharge, Dysuria, Frequency, Hematuria, Pain, Bleeding, Other Neurological: No Symptoms Reported Musculoskeletal: No Symptoms Reported Integumentary: No Symptoms Reported. negative: See HPI, Change in Color, Change in Hair/Nails, Dryness, Lesions, Lumps, Rash, Itching, Wound, Bruises, Juandice, Other Hematologic/Lymphatic: No Symptoms Reported. negative: See HPI, Anemia, Blood Clots, Easy Bleeding, Easy Bruising, Swollen Glands, Lymphadenopathy, Other Endocrine: No Symptoms Reported Psychiatric: No Symptoms Reported. negative: See HPI, Anxiety, Depression, Hallucinations, Excessive crying, Suicidal, Other PE - General Limitations: No Limitations General Appearance: Alert, In No Apparent Distress - Head Head Exam: Normal Inspection, Atraumatic, Normocephalic - Eyes Eye exam: Normal Appearance, PERRL, EOMI. negative: Scleral Icterus, Conjunctival Injection, Nystagmus, Miosis, Mydrasis, Periorbital Swelling, Periorbital Tenderness, Other - ENT ENT Exam: Normal Exam, Normal Oropharynx, Normal External Ear Exam, Mucous Membranes Moist, TM's Normal Bilaterally - Chest Chest Inspection: Normal Inspection, Symmetric Chest Wall Rise - Respiratory Respiratory Exam: Normal Lung Sounds Bilat Respiratory Exam: Bilateral Clear to Auscultation - Cardiovascular Cardiovascular Exam: Regular Rate, Normal Rhythm, Normal Heart Sounds Pulse: Normal Edema: Normal - Abdominal Exam Abdominal Exam: Normal Inspection, Normal Bowel Sounds, Soft. negative: Distention, Tenderness, Guarding, Rebound, Rigidity, Dimnished Bowel Sounds, Hyperactive Bowel Sounds, Hypoactive Bowel Sounds, Organomegaly, Trauma, Incision, Ascites, Mass, Bruit, Pulsatile Mass, Hernia, Other Abdominal Tenderness: negative: RUQ, RLQ, LUQ, LLQ, Epigastrium, Suprapubic, Diffuse, Mild, Moderate, Severe, Other - Extremities Extremities Exam: Normal Inspection, Full ROM, Normal Capillary Refill. negative: Tenderness, Edema, Joint Swelling, Calf Tenderness, Other - Back Back Exam: Normal Inspection, Full ROM. negative: Tenderness, (R) CVA Tenderness, (L) CVA Tenderness, Muscle Spasm, Paraspinal Tenderness, Vertebral Tenderness, Rashes, (R) Sciatic Notch Tenderness, (L) Sciatic Notch Tendern, (R) Straight Leg Raise, (L) Straight Leg Raise, Other - Neurologic Neurological Exam: Alert, Oriented X3, CN II-XII Intact, Normal Gait, Reflexes Normal - Psychiatric Psychiatric Exam: Normal Affect, Normal Mood. negative: Depressed, Agitated, Anxious, Flat Affect, Manic, Homicidal Ideation, Suicidal Ideation, Other - Skin Skin Exam: Warm, Dry, Intact, Normal Color - Vitals Vitals: Temperature 97.9 F Pulse Rate 72 Respiratory Rate 20 Blood Pressure [Left Arm] 119/71 Blood Pressure 91/57 O2 Sat by Pulse Oximetry 98 Course - Consultation Called: 21:17 Call Returned: 21:17 (Dr. Young states admit and give four liters fluid ) - Education/Counseling Education/Counseling: Patient, Family Educated On: Treatment, Diagnosis, Needs for Follow Up ROR - Labs Reviewed Laboratory Results Reviewed?: Yes (All labs and x-ray results reviewed and discussed with patient) Result Diagrams: 05/23/20 17:52 05/23/20 17:52 - XRAY XRAY Interpreted by: Radiologist (CXR: No change no acute findings) - EKG Rate: 84 [place]: Normal Rhythm: NSR Block: None ST: Nonsp - Labs Reviewed Laboratory: WBC 11.1 X10^3/uL (3.6-10.0) H 05/23/20 17:52 RBC 4.67 X10^6/uL (4.7-6.0) L 05/23/20 17:52 Hgb 13.9 g/dL (13.5-18.0) 05/23/20 17:52 Hct 40.5 % (42.0-54.0) L 05/23/20 17:52 MCV 86.9 fL (80.0-100.0) 05/23/20 17:52 MCH 29.7 pg (27.0-34.0) 05/23/20 17:52 MCHC 34.2 g/dL (33.0-35.0) 05/23/20 17:52 RDW 13.0 % (11.6-16.5) 05/23/20 17:52 Plt Count 362 X10^3/uL (150.0-450.0) 05/23/20 17:52 MPV 7.2 fL (7.4-11.0) L 05/23/20 17:52 Neut % (Auto) 65.1 % (42.0-75.0) 05/23/20 17:52 Lymph % (Auto) 27.8 % (21.0-51.0) 05/23/20 17:52 [place] % (Auto) 6.1 % (0.0-13.0) 05/23/20 17:52 Eos % (Auto) 0.4 % (0.9-2.9) L 05/23/20 17:52 Baso % (Auto) 0.6 % (0.2-1.0) 05/23/20 17:52 Neut # (Auto) 7.2 x10^3/uL (2.2-4.8) H 05/23/20 17:52 Lymph # (Auto) 3.1 X10^3/uL (1.3-2.9) H 05/23/20 17:52 [place] # (Auto) 0.7 x10^3/uL (0.3-0.8) 05/23/20 17:52 Eos # (Auto) 0.0 x10^3/uL (0.0-0.2) 05/23/20 17:52 Baso # (Auto) 0.1 X10^3/uL (0.0-0.1) 05/23/20 17:52 Absolute Nucleated RBC 0.0 /100WBC 05/23/20 17:52 PT 13.2 SECONDS (11.8-14.3) 05/23/20 17:52 INR Target Range - 05/23/20 17:52 INR 1.03 (0.8-1.3) 05/23/20 17:52 APTT 35.5 SECONDS (22.9-36.5) 05/23/20 17:52 PTT Comment - 05/23/20 17:52 D-Dimer 255 ng/mL (0-400) 05/23/20 17:52 Sodium 128 mmol/L (136-145) L 05/23/20 17:52 Corrected Sodium TNP 05/23/20 17:52 Potassium 5.3 mmol/L (3.5-5.1) H 05/23/20 17:52 Chloride 89 mmol/L (98-107) L 05/23/20 17:52 Carbon Dioxide 21.6 mmol/L (21-32) 05/23/20 17:52 BUN 68 mg/dL (7-18) H 05/23/20 17:52 Creatinine 5.63 mg/dL (0.70-1.30) H 05/23/20 17:52 Est GFR (MDRD) Af Amer 14 (>60) L 05/23/20 17:52 Est GFR (MDRD) Non-Af 11 (>60) L 05/23/20 17:52 Glucose 92 mg/dL (65-99) 05/23/20 17:52 Calcium 9.3 mg/dL (8.5-10.1) 05/23/20 17:52 Corrected Calcium TNP 05/23/20 17:52 Magnesium 2.4 mg/dL (1.7-2.9) 05/23/20 17:52 Total Bilirubin 0.50 mg/dL (0.2-1.0) 05/23/20 17:52 AST 20 Units/L (15-37) 05/23/20 17:52 ALT 22 Units/L (12-78) 05/23/20 17:52 Alkaline Phosphatase 173 Units/L (46-116) H 05/23/20 17:52 Creatine Kinase 139 Units/L (39-308) 05/23/20 17:52 CK-MB (CK-2) 2.9 ng/mL (0-4.0) 05/23/20 17:52 CK/CKMB % Calc 2.1 % (<4) 05/23/20 17:52 Troponin I < 0.02 ng/mL (0-1.5) 05/23/20 17:52 Total Protein 9.1 g/dL (6.4-8.2) H 05/23/20 17:52 Albumin 4.9 g/dL (3.4-5.0) 05/23/20 17:52 Globulin 4.2 g/dL (2.5-4.5) 05/23/20 17:52 Albumin/Globulin Ratio 1.2 Ratio (1.1-2.1) 05/23/20 17:52 Opioid - Opioid Risk Tool Age ([place] box if 16-45): No History of Preadolescent Sexual Abuse: No Total: 0 Total Score Risk Category: Low Risk - Diagnosis Discharge Problem: Acute dehydration, Hyponatremia, Hyperkalemia, Chest pain in adult Acute renal failure (ARF) Qualifiers: Acute renal failure type: unspecified Qualified Code(s): N17.9 - Acute kidney failure, unspecified Hypotension Qualifiers: Hypotension type: unspecified hypotension type Qualified Code(s): I95.9 - Hy potension, unspecified - Discharge Plan Disposition: 09 ADMITTED INPATIENT Condition: Stable - Follow ups/Referrals Follow ups/Referrals: JOLENE YOUNG [Primary Care Provider] - 3 days - Instructions
[2020-05-23] MEDS ORDERED: NS 1000 ML 1,000 ML IV ONE ×3 (17:42→22:09)
--- NOTE | 2020-05-23 17:59 | RAD ---
HISTORYSOB, left chest painSTUDYPortable AP [id number]/23/2020FINDINGSContinued normal heart size with clear lungs and pleural spaces. Mil d pulmonary hyperinflation is nonspecific. There is no evidence for pneumonia or pulmonary edema.IMPR ESSIONNo change; no acute findings.Electronically signed by: JOAO ZENG (May 23, 2020 17:58:54)
[2020-05-23] MEDS ORDERED: NS 1000 ML 1,000 ML ONE ×3 (18:02→22:10)
[2020-05-23 18:07] LABS: BASOPHILS # (AUTO) 0.1 X10^3/uL (0.0-0.1); BASOPHILS % (AUTO) 0.6 % (0.2-1.0); EOSINOPHILS % (AUTO) 0.4 % (0.9-2.9); HEMATOCRIT 40.5 % (42.0-54.0); HEMOGLOBIN 13.9 g/dL (13.5-18.0); LYMPHOCYTES # (AUTO) 3.1 X10^3/uL (1.3-2.9); LYMPHOCYTES % (AUTO) 27.8 % (21.0-51.0); MEAN CORPUSCULAR HEMOGLOBIN 29.7 pg (27.0-34.0); MEAN CORPUSCULAR HGB CONC 34.2 g/dL (33.0-35.0); MEAN CORPUSCULAR VOLUME 86.9 fL (80.0-100.0); MEAN PLATELET VOLUME 7.2 fL (7.4-11.0); MONOCYTES # (AUTO) 0.7 x10^3/uL (0.3-0.8); MONOCYTES % (AUTO) 6.1 % (0.0-13.0); NEUTROPHILS # (AUTO) 7.2 x10^3/uL (2.2-4.8); NEUTROPHILS % (AUTO) 65.1 % (42.0-75.0); PLATELET COUNT 362 X10^3/uL (150.0-450.0); RED BLOOD COUNT 4.67 X10^6/uL (4.7-6.0); WHITE BLOOD COUNT 11.1 X10^3/uL (3.6-10.0)
[2020-05-23 18:21] LABS: BLOOD UREA NITROGEN 68 mg/dL (7-18); CALCIUM 9.3 mg/dL (8.5-10.1); CARBON DIOXIDE 21.6 mmol/L (21-32); CHLORIDE 89 mmol/L (98-107); CREATININE 5.63 mg/dL (0.70-1.30); SODIUM 128 mmol/L (136-145); TROPONIN I < 0.02 ng/mL (0-1.5); eGFR NON BLACK RACES 11 (>60)
[2020-05-23 18:25] LABS: ALANINE AMINOTRANSFERASE 22 Units/L (12-78); ALBUMIN 4.9 g/dL (3.4-5.0); ALKALINE PHOSPHATASE 173 Units/L (46-116); ASPARTATE AMINO TRANSFERASE 20 Units/L (15-37); CKMB % 2.1 % (<4); CREATINE KINASE 139 Units/L (39-308); CREATINE KINASE MB 2.9 ng/mL (0-4.0); MAGNESIUM 2.4 mg/dL (1.7-2.9); TOTAL PROTEIN 9.1 g/dL (6.4-8.2)
[2020-05-23 23:30] LABS: CKMB % 0.2 % (<4); CREATINE KINASE 906 Units/L (39-308); CREATINE KINASE MB 1.7 ng/mL (0-4.0); TROPONIN I < 0.02 ng/mL (0-1.5)
[2020-05-23] MEDS: NS 1000 ML 1,000 ML IV SCH (23:31)
[2020-05-24 00:02] VITALS: BMI 23.1
[2020-05-24 04:35] LABS: BASOPHILS % (AUTO) 0.3 % (0.2-1.0); EOSINOPHILS % (AUTO) 0.3 % (0.9-2.9); HEMATOCRIT 34.6 % (42.0-54.0); HEMOGLOBIN 11.6 g/dL (13.5-18.0); LYMPHOCYTES # (AUTO) 2.8 X10^3/uL (1.3-2.9); LYMPHOCYTES % (AUTO) 35.8 % (21.0-51.0); MEAN CORPUSCULAR HEMOGLOBIN 29.6 pg (27.0-34.0); MEAN CORPUSCULAR HGB CONC 33.4 g/dL (33.0-35.0); MEAN CORPUSCULAR VOLUME 88.5 fL (80.0-100.0); MEAN PLATELET VOLUME 7.5 fL (7.4-11.0); MONOCYTES # (AUTO) 0.5 x10^3/uL (0.3-0.8); MONOCYTES % (AUTO) 6.4 % (0.0-13.0); NEUTROPHILS # (AUTO) 4.5 x10^3/uL (2.2-4.8); NEUTROPHILS % (AUTO) 57.2 % (42.0-75.0); PLATELET COUNT 284 X10^3/uL (150.0-450.0); RED BLOOD COUNT 3.91 X10^6/uL (4.7-6.0); RED CELL DISTRIBUTION WIDTH 13.1 % (11.6-16.5); WHITE BLOOD COUNT 7.9 X10^3/uL (3.6-10.0)
[2020-05-24 04:44] LABS: ALANINE AMINOTRANSFERASE 21 Units/L (12-78); ALBUMIN 3.6 g/dL (3.4-5.0); ALKALINE PHOSPHATASE 133 Units/L (46-116); ASPARTATE AMINO TRANSFERASE 12 Units/L (15-37); BLOOD UREA NITROGEN 60 mg/dL (7-18); CALCIUM 7.9 mg/dL (8.5-10.1); CARBON DIOXIDE 20.9 mmol/L (21-32); CHLORIDE 103 mmol/L (98-107); CHOL/HDL RATIO 7.6 (0.0-5.0); CHOLESTEROL 214 mg/dL (0-200); CKMB % 2.1 % (<4); CREATINE KINASE 96 Units/L (39-308); CREATININE 3.62 mg/dL (0.70-1.30); HDL CHOLESTEROL 28 mg/dL (40-60); SODIUM 138 mmol/L (136-145); TOTAL PROTEIN 6.9 g/dL (6.4-8.2); TRIGLYCERIDES 205 mg/dL (0-150); TROPONIN I < 0.02 ng/mL (0-1.5); eGFR NON BLACK RACES 19 (>60)
[2020-05-24] MEDS: NS 1000 ML 1,000 ML IV SCH ×2 (05:35→11:07)
[2020-05-24] MEDS ORDERED: LR 1000 ML IV 1,000 ML IV SCH (09:40)
[2020-05-24] MEDS ORDERED: NORCO 10/325 TAB ONE (10:47)
[2020-05-24 10:49] LABS: CKMB % 2.3 % (<4); CREATINE KINASE 89 Units/L (39-308); TROPONIN I < 0.02 ng/mL (0-1.5)
[2020-05-24] MEDS: NORCO 10/325 TAB PO PRN ×3 (11:06→22:20)
[2020-05-24] MEDS: LR 1000 ML IV 1,000 ML IV SCH ×2 (13:23→21:01)
[2020-05-24] MEDS: PROTONIX TAB 40 MG PO SCH (13:23)
[2020-05-25] MEDS: LR 1000 ML IV 1,000 ML IV SCH (05:03)
[2020-05-25 06:26] LABS: ALBUMIN 3.1 g/dL (3.4-5.0); CALCIUM 7.7 mg/dL (8.5-10.1); CARBON DIOXIDE 24.6 mmol/L (21-32); COR CA(FOR HYPOALB) 8.4 mg/dL (8.5-10.1); CREATININE 1.78 mg/dL (0.70-1.30); TOTAL PROTEIN 6.2 g/dL (6.4-8.2)
[2020-05-25 06:41] LABS: BASOPHILS % (AUTO) 0.4 % (0.2-1.0); EOSINOPHILS # (AUTO) 0.1 x10^3/uL (0.0-0.2); HEMATOCRIT 30.8 % (42.0-54.0); HEMOGLOBIN 10.5 g/dL (13.5-18.0); LYMPHOCYTES # (AUTO) 4.2 X10^3/uL (1.3-2.9); MEAN CORPUSCULAR HEMOGLOBIN 30.2 pg (27.0-34.0); MEAN CORPUSCULAR HGB CONC 34.1 g/dL (33.0-35.0); MEAN CORPUSCULAR VOLUME 88.4 fL (80.0-100.0); MEAN PLATELET VOLUME 7.1 fL (7.4-11.0); MONOCYTES # (AUTO) 0.5 x10^3/uL (0.3-0.8); MONOCYTES % (AUTO) 6.2 % (0.0-13.0); NEUTROPHILS # (AUTO) 3.4 x10^3/uL (2.2-4.8); NEUTROPHILS % (AUTO) 41.4 % (42.0-75.0); PLATELET COUNT 240 X10^3/uL (150.0-450.0); RED BLOOD COUNT 3.49 X10^6/uL (4.7-6.0); RED CELL DISTRIBUTION WIDTH 13.5 % (11.6-16.5); WHITE BLOOD COUNT 8.3 X10^3/uL (3.6-10.0)
[2020-05-25] MEDS: NORCO 10/325 TAB PO PRN (06:50)
[2020-05-25] MEDS: PROTONIX TAB 40 MG PO SCH (08:19)
[2020-05-25 09:12] VITALS: BP 132/80
== END 2020-05-25 10:30 | disposition home or self-care (01) ==
LOC: ER 14:48 → MED/SURG 14:48
PROVIDERS: ADMIT Obstetrics & Gynecology Obstetrics; ATTEND Obstetrics & Gynecology Obstetrics
DX: R53.1 Weakness; I95.89 Other hypotension; Z11.59 Encounter for screening for other viral diseases; K21.9 Gastro-esophageal reflux disease without esophagitis; E86.0 Dehydration; I10 Essential (primary) hypertension; R07.89 Other chest pain; N17.8 Other acute kidney failure

== ENCOUNTER 2021-10-08 17:05 | Observation (INO) ==
--- NOTE | 2021-10-08 17:43 | DR.CP ---
HPI Time Seen Time Seen by Provider: 10/08/21 17:15 PCP Primary Care Physician: HECTOR PALOMO Complaint Chief Complaint Doctor Comments: intermittant chest pain and some shortness of breath for a few days. Chief Complaint:: PT REPORTS TO HAVING INTERMITTANT CP FOR A FEW DAYS AROUND LUNCH PT REPORTS TO HAVING LEFT SIDE C/P ( " FEELS UNCOMFORTABLE FEELS LIKE A MUSCLE SPASM" PT UNABLE TO RATE OR DESCRIBE PAIN ,BR Source History Provided: Patient Mode of Arrival Mode of Arrival: Stretcher Timing Onset of Chief Complaint: 10/08/21 Location Chest Pain Radiation Location: None PMH PMH Past Medical History: Yes Past Medical History: GERD and Hypertension Past Surgical History: Yes Surgical History: Appendectomy and Cholecystectomy Family History History of Family Medical Conditions: Yes Family Medical History: Diabetes Mellitus, Cancer and Hypertension Social History Does patient currently use any type of tobacco product: Yes Type of Tobacco Use: Cigarettes Does any household member use tobacco: No Alcohol Use: None Do you use any recreational Drugs:: No Lives With: Family Lives Where: Home Infectious screening In the last 2 months have you had wt loss of >10#?: NO Have you had fever, night sweats or hemotysis?: No Have you traveled outside the country in the last 6 months?: No Isolation: Standard ROS Review of Systems Constitutional: No Symptoms Reported Eyes: No Symptoms Reported ENTM: No Symptoms Reported Respiratoy: Dry Cough and Short of Breath Cardiovascular: Chest Pain Gastrointestinal/Abdominal: No Symptoms Reported Genitourinary: No Symptoms Reported Neurological: No Symptoms Reported Musculoskeletal: No Symptoms Reported Integumentary: No Symptoms Reported Hematologic/Lymphatic: No Symptoms Reported Endocrine: No Symptoms Reported Psychiatric: No Symptoms Reported All Other Systems: Reviewed and Negative PE Vitals Vitals: Temperature 98.8 F Pulse Rate 81 Respiratory Rate 25 Blood Pressure [Left Arm] 111/69 Blood Pressure 117/75 O2 Sat by Pulse Oximetry 98 General Limitations: No Limitations General Appearance: Alert and In No Apparent Distress Respiratory Respiratory Exam: Bilateral: Rhonchi (no rales or wheezing) MDM Additional Information Findings: bronchitis, non specific chest pain Differential Diagnosis Differential Diagnosis: Angina, Chest Wall Pain and Pneumonia COURSE Treatment Treatment: this patient remained stable during er visit, was given aspirin 324mg in er and cadiac work up that was negative. The patient had a low H?H and stated that he was taking something at home to build up his blood. he saw his pcp in the office this am and did not tell him about his left chest discomfort that had been going on for 4-5 days. ROR Labs Reviewed Laboratory Results Reviewed?: Yes Result Diagrams: 10/08/21 17:48 10/08/21 17:48 Laboratory: WBC 9.0 X10^3/uL (3.6-10.0) 10/08/21 17:48 RBC 3.52 X10^6/uL (4.7-6.0) L 10/08/21 17:48 Hgb 8.6 g/dL (13.5-18.0) L 10/08/21 17:48 Hct 26.8 % (42.0-54.0) L 10/08/21 17:48 MCV 76.3 fL (80.0-100.0) L 10/08/21 17:48 MCH 24.4 pg (27.0-34.0) L 10/08/21 17:48 MCHC 32.0 g/dL (33.0-35.0) L 10/08/21 17:48 RDW 15.5 % (11.6-16.5) 10/08/21 17:48 Plt Count 460 X10^3/uL (150.0-450.0) H 10/08/21 17:48 MPV 6.8 fL (7.4-11.0) L 10/08/21 17:48 Neut % (Auto) 60.2 % (42.0-75.0) 10/08/21 17:48 Lymph % (Auto) 32.3 % (21.0-51.0) 10/08/21 17:48 [place] % (Auto) 6.5 % (0.0-13.0) 10/08/21 17:48 Eos % (Auto) 0.7 % (0.9-2.9) L 10/08/21 17:48 Baso % (Auto) 0.3 % (0.2-1.0) 10/08/21 17:48 Neut # (Auto) 5.4 x10^3/uL (2.2-4.8) H 10/08/21 17:48 Lymph # (Auto) 2.9 X10^3/uL (1.3-2.9) 10/08/21 17:48 [place] # (Auto) 0.6 x10^3/uL (0.3-0.8) 10/08/21 17:48 Eos # (Auto) 0.1 x10^3/uL (0.0-0.2) 10/08/21 17:48 Baso # (Auto) 0.0 X10^3/uL (0.0-0.1) 10/08/21 17:48 Absolute Nucleated RBC 0.0 /100WBC 10/08/21 17:48 PT 14.0 SECONDS (11.8-14.3) 10/08/21 17:48 INR Target Range - 10/08/21 17:48 INR 1.13 (0.8-1.3) 10/08/21 17:48 APTT 33.5 SECONDS (22.9-36.5) 10/08/21 17:48 PTT Comment - 10/08/21 17:48 D-Dimer 0.39 ug/ml (0.0-0.57) 10/08/21 17:48 Sodium 134 mmol/L (136-145) L 10/08/21 17:48 Corrected Sodium 134 mmol/L (136-145) L 10/08/21 17:48 Potassium 5.1 mmol/L (3.5-5.1) 10/08/21 17:48 Chloride 101 mmol/L (98-107) 10/08/21 17:48 Carbon Dioxide 20.8 mmol/L (21-32) L 10/08/21 17:48 BUN 24 mg/dL (7-18) H 10/08/21 17:48 Creatinine 1.27 mg/dL (0.70-1.30) 10/08/21 17:48 Est GFR (MDRD) Af Amer > 60 (>60) 10/08/21 17:48 Est GFR (MDRD) Non-Af > 60 (>60) 10/08/21 17:48 Glucose 115 mg/dL (65-99) H 10/08/21 17:48 Calcium 8.8 mg/dL (8.5-10.1) 10/08/21 17:48 Corrected Calcium TNP 10/08/21 17:48 Total Bilirubin 0.20 mg/dL (0.2-1.0) 10/08/21 17:48 AST 12 Units/L (15-37) L 10/08/21 17:48 ALT 17 Units/L (12-78) 10/08/21 17:48 Alkaline Phosphatase 184 Units/L (46-116) H 10/08/21 17:48 Creatine Kinase 139 Units/L (39-308) 10/08/21 23:27 Creatine Kinase Cancelled 10/08/21 23:27 CK-MB (CK-2) 1.1 ng/mL (0-4.0) 10/08/21 23:27 CK-MB (CK-2) Cancelled 10/08/21 23:27 CK/CKMB % Calc 0.8 % (<4) 10/08/21 23:27 CK/CKMB % Calc Cancelled 10/08/21 23:27 Troponin I < 0.02 ng/mL (0-1.5) 10/08/21 23:27 Troponin I Cancelled 10/08/21 23:27 Total Protein 7.8 g/dL (6.4-8.2) 10/08/21 17:48 Albumin 3.6 g/dL (3.4-5.0) 10/08/21 17:48 Globulin 4.2 g/dL (2.5-4.5) 10/08/21 17:48 Albumin/Globulin Ratio 0.9 Ratio (1.1-2.1) L 10/08/21 17:48 SARS CoV-2 RNA Rapid XIMENA Negative (NEGATIVE) 10/08/21 23:10 Other Results Comments: h/h is low at 8,6/26.8 but other labs are normal including triponin of <0.02 XRAY XRAY Interpreted by: Radiologist (chest xray no acute intrathoracic abnormality according to radiologist) EKG Rhythm: NSR Opioid Opioid Risk Tool Age ([place] if 16-45): No History of Preadolescent Sexual Abuse: No Total: 0 Total Score Risk Category: Low Risk Copyright: Ángel ROBERTSON predicting aberrant behaviors Diagnosis Discharge Problem: Nonspecific chest pain Anemia Qualifiers: Anemia type: unspecified type Qualified Code(s): D64.9 - Anemia, unspecified 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 Qualified Code(s): M47.22 - Other spondylosis with radiculopathy, cervical region Instructions Instructions: Anemia Nonspecific Chest Pain Forms: Precautions for COVID19 [facility] Social Distancing ADDITIONAL NOTES Additional Notes Additional Notes: this patient was in the process of being discharged and got pale and felt dizzy he was brought back in the er for further evaluation.this patient was brought back in er and an additional set of cardiac enzymes were drawm that were drawn triponin <0.02 and ekg was nsr, since patient was having symptomatic anemia with vertigo and non specific chest pain we are going to admit him for further evaluation and treatment. several attempts were made to contact Dr. Allen and decision was made to refer to observation,
[2021-10-08 18:02] LABS: BASOPHILS % (AUTO) 0.3 % (0.2-1.0); EOSINOPHILS # (AUTO) 0.1 x10^3/uL (0.0-0.2); EOSINOPHILS % (AUTO) 0.7 % (0.9-2.9); HEMATOCRIT 26.8 % (42.0-54.0); HEMOGLOBIN 8.6 g/dL (13.5-18.0); LYMPHOCYTES # (AUTO) 2.9 X10^3/uL (1.3-2.9); LYMPHOCYTES % (AUTO) 32.3 % (21.0-51.0); MEAN CORPUSCULAR HEMOGLOBIN 24.4 pg (27.0-34.0); MEAN CORPUSCULAR VOLUME 76.3 fL (80.0-100.0); MEAN PLATELET VOLUME 6.8 fL (7.4-11.0); MONOCYTES # (AUTO) 0.6 x10^3/uL (0.3-0.8); MONOCYTES % (AUTO) 6.5 % (0.0-13.0); NEUTROPHILS # (AUTO) 5.4 x10^3/uL (2.2-4.8); NEUTROPHILS % (AUTO) 60.2 % (42.0-75.0); PLATELET COUNT 460 X10^3/uL (150.0-450.0); RED BLOOD COUNT 3.52 X10^6/uL (4.7-6.0); RED CELL DISTRIBUTION WIDTH 15.5 % (11.6-16.5)
--- NOTE | 2021-10-08 18:04 | RAD ---
HISTORYCP, SOBSTUDYCHEST, 1 VIEWCOMPARISONAugust 2019TECHNIQUEChest radiographic imaging, AP portable projection, 1 imageFINDINGSNo cardiomegaly.No focal airspace disease.No pleural effusion.No pneumothorax.No acute osseous abnormality.IMPRESSIONNo imaging findings of acute cardiopulmonary disease.Electronically signed by: Diego Mckeon (Oct 08, 2021 18:03:19)
[2021-10-08 18:19] LABS: CKMB % 2.1 % (<4); CREATINE KINASE 53 Units/L (39-308); CREATINE KINASE MB 1.1 ng/mL (0-4.0); TROPONIN I < 0.02 ng/mL (0-1.5)
[2021-10-08 19:20] LABS: ALANINE AMINOTRANSFERASE 17 Units/L (12-78); ALBUMIN 3.6 g/dL (3.4-5.0); ALKALINE PHOSPHATASE 184 Units/L (46-116); ASPARTATE AMINO TRANSFERASE 12 Units/L (15-37); BLOOD UREA NITROGEN 24 mg/dL (7-18); CALCIUM 8.8 mg/dL (8.5-10.1); CARBON DIOXIDE 20.8 mmol/L (21-32); CHLORIDE 101 mmol/L (98-107); COR NA(FOR HYPERGLY) 134 mmol/L (136-145); CREATININE 1.27 mg/dL (0.70-1.30); SODIUM 134 mmol/L (136-145); TOTAL PROTEIN 7.8 g/dL (6.4-8.2); eGFR NON BLACK RACES > 60 (>60)
[2021-10-08] MEDS ORDERED: HEMOCYTE-PLUS PO ONE (19:30)
[2021-10-08] MEDS ORDERED: ULTRAM PO ONE (21:28)
[2021-10-08] MEDS ORDERED: ULTRAM ONE (21:31)
[2021-10-08 23:58] LABS: CKMB % 0.8 % (<4); CREATINE KINASE 139 Units/L (39-308); CREATINE KINASE MB 1.1 ng/mL (0-4.0); TROPONIN I < 0.02 ng/mL (0-1.5)
[2021-10-09 02:59] VITALS: BMI 26.6
[2021-10-09 06:11] LABS: CKMB % 2.4 % (<4); CREATINE KINASE 46 Units/L (39-308); CREATINE KINASE MB 1.1 ng/mL (0-4.0); TROPONIN I < 0.02 ng/mL (0-1.5)
[2021-10-09 06:32] LABS: BASOPHILS # (AUTO) 0.1 X10^3/uL (0.0-0.1); BASOPHILS % (AUTO) 0.6 % (0.2-1.0); EOSINOPHILS # (AUTO) 0.1 x10^3/uL (0.0-0.2); EOSINOPHILS % (AUTO) 0.9 % (0.9-2.9); HEMATOCRIT 26.7 % (42.0-54.0); HEMOGLOBIN 8.7 g/dL (13.5-18.0); LYMPHOCYTES # (AUTO) 4.9 X10^3/uL (1.3-2.9); LYMPHOCYTES % (AUTO) 45.1 % (21.0-51.0); MEAN CORPUSCULAR HEMOGLOBIN 24.6 pg (27.0-34.0); MEAN CORPUSCULAR HGB CONC 32.5 g/dL (33.0-35.0); MEAN CORPUSCULAR VOLUME 75.6 fL (80.0-100.0); MEAN PLATELET VOLUME 7.6 fL (7.4-11.0); MONOCYTES # (AUTO) 0.7 x10^3/uL (0.3-0.8); NEUTROPHILS # (AUTO) 5.2 x10^3/uL (2.2-4.8); NEUTROPHILS % (AUTO) 47.4 % (42.0-75.0); PLATELET COUNT 461 X10^3/uL (150.0-450.0); RED BLOOD COUNT 3.53 X10^6/uL (4.7-6.0); RED CELL DISTRIBUTION WIDTH 15.7 % (11.6-16.5)
[2021-10-09 06:42] LABS: BLOOD UREA NITROGEN 22 mg/dL (7-18); CALCIUM 8.4 mg/dL (8.5-10.1); CARBON DIOXIDE 21.4 mmol/L (21-32); CHLORIDE 100 mmol/L (98-107); CREATININE 1.09 mg/dL (0.70-1.30); SODIUM 131 mmol/L (136-145); eGFR NON BLACK RACES > 60 (>60)
[2021-10-09 06:43] LABS: ALANINE AMINOTRANSFERASE 25 Units/L (12-78); ALBUMIN 3.5 g/dL (3.4-5.0); ALKALINE PHOSPHATASE 181 Units/L (46-116); ASPARTATE AMINO TRANSFERASE 21 Units/L (15-37); TOTAL PROTEIN 7.7 g/dL (6.4-8.2)
[2021-10-09 12:31] LABS: CREATINE KINASE 51 Units/L (39-308); TROPONIN I < 0.02 ng/mL (0-1.5)
[2021-10-09 12:47] LABS: IRON 203 ug/dL (50-175)
[2021-10-09] MEDS: HEMOCYTE-PLUS PO SCH (20:25)
[2021-10-09] MEDS ORDERED: VISTARIL PO PRN (20:30)
[2021-10-10 07:42] LABS: WHITE BLOOD COUNT 8.2 X10^3/uL (3.6-10.0)
[2021-10-10 07:46] LABS: BASOPHILS # (AUTO) 0.1 X10^3/uL (0.0-0.1); BASOPHILS % (AUTO) 1.2 % (0.2-1.0); EOSINOPHILS # (AUTO) 0.1 x10^3/uL (0.0-0.2); EOSINOPHILS % (AUTO) 1.2 % (0.9-2.9); HEMATOCRIT 28.9 % (42.0-54.0); HEMOGLOBIN 9.5 g/dL (13.5-18.0); LYMPHOCYTES # (AUTO) 3.5 X10^3/uL (1.3-2.9); LYMPHOCYTES % (AUTO) 42.1 % (21.0-51.0); MEAN CORPUSCULAR HEMOGLOBIN 24.6 pg (27.0-34.0); MEAN CORPUSCULAR HGB CONC 32.9 g/dL (33.0-35.0); MEAN CORPUSCULAR VOLUME 74.6 fL (80.0-100.0); MEAN PLATELET VOLUME 7.4 fL (7.4-11.0); MONOCYTES # (AUTO) 0.5 x10^3/uL (0.3-0.8); MONOCYTES % (AUTO) 5.6 % (0.0-13.0); NEUTROPHILS # (AUTO) 4.1 x10^3/uL (2.2-4.8); NEUTROPHILS % (AUTO) 49.9 % (42.0-75.0); PLATELET COUNT 442 X10^3/uL (150.0-450.0); RED BLOOD COUNT 3.87 X10^6/uL (4.7-6.0)
[2021-10-10 07:50] LABS: ALANINE AMINOTRANSFERASE 30 Units/L (12-78); ALBUMIN 3.5 g/dL (3.4-5.0); ALKALINE PHOSPHATASE 197 Units/L (46-116); ASPARTATE AMINO TRANSFERASE 22 Units/L (15-37); BLOOD UREA NITROGEN 17 mg/dL (7-18); CALCIUM 8.5 mg/dL (8.5-10.1); CARBON DIOXIDE 24.9 mmol/L (21-32); CHLORIDE 101 mmol/L (98-107); CREATININE 0.97 mg/dL (0.70-1.30); SODIUM 137 mmol/L (136-145); TOTAL PROTEIN 7.9 g/dL (6.4-8.2); eGFR NON BLACK RACES > 60 (>60)
[2021-10-10 07:57] LABS: HYPOCHROMASIA SLIGHT; MICROCYTOSIS SLIGHT; PLATELET MORPHOLOGY COMMENT NORMAL (NORMAL)
--- NOTE | 2021-10-10 09:48 | DR.H&P ---
H&P - History & Physical for Day of: H&P Date: 10/09/21 - Chief Complaint Chief Complaint: CHEST PAIN, SHORTNESS OF BREATH, DIZZINESS - History of Present Illness History of Present Illness: IS A 56 YEAR OLD PATIENT OF . HE PRE SENTED TO THE ER WITH REPORTS OF LEFT SIDED CHEST PAIN, DIZZINESS, AND SHORTNESS OF BREATH. SYMPTOMS REPORTEDLY STARTED ON DAY PRIOR. PATIENT DESCRIBED PAIN INTERMITTENT, FEELS LIKE MUSCLE SPASMS, AND WAS RATED A 4/10 UPON ASSESSMENT. PATIENT HAS A PMH OF GERD, HTN, APPENDECTOMY, AND CHOLECYSTECTOMY. ON ARRIVAL TO THE ER, VITALS WERE 98.8-89-22-97%-128/71. LABS WERE OBTAINED. ABNORMAL LAB MONI UES INCLUDED THE FOLLOWING: RBC 3.52, HGB 8.6, HCT 26.8, PLT COUNT 460, SODIUM 134, CARBON DIOXIDE 20.8, BUN 24, GLUCOSE 115, AST 12, ALK PHOS 184. CARDIAC ENZYMES WITHIN NORMAL LIMITS. COVID-19 NEGATIVE. EKG WAS OBTAINED AND REVEALED: SINUS RHYTHM WITH HR 89. CHEST XRAY WAS OBTAINED AND REVEALED: No imaging findings of acute cardiopulmonary disease. PATIENT WAS ADMITTED TO THE HOSPTIAL FOR FURTHER EVALUATION OF CHEST PAIN, ANEMIA, AND DIZZINESS. HE WAS STARTED ON HEMOCYTE PLUS 1 TABLET DAILY. WE WILL MONITOR SERIAL CARDIAC ENZYMES AND EKGs. WE WILL CHECK STOOL FOR OCCULT BLOOD AND ALSO OBTAIN A URINALYSIS. OTHERWISE, WE PLAN TO FOLLOW UP WITH AM LABS AND CONTINUE TO MONITOR. TIME SPENT ON CLINICAL ASSESSMENT, REVIEWING LABS AND IMAGING, DECISION MAKING, AND DOCUMENTATION GREATER THAN 75 MINUTES. - Past Medical History Past Medical History: Hypertension, GERD - Past Surgical History Surgical History: Appendectomy, Cholecystectomy - Family History Family Medical History: Diabetes Mellitus, Cancer, Hypertension - Social History Does patient currently use any type of tobacco product: Yes Type of Tobacco Use: Cigarettes Does any household member use tobacco: Yes Alcohol Use: None Drug Use: None - Medications Home Medications: No Known Drug Allergies [NKDA] Allergy (Verified 10/08/21 17:20) New Prescriptions ferrous sulfate 325 mg PO TID #30 tab 10/08/21 [Rx] gabapentin 300 mg PO TID #30 cap 10/08/21 [Rx] - Review of Systems Constitutional: Weakness ENT: No Symptoms Reported Respiratory: Shortness of Breath, SOB with Excertion Cardiovascular: Chest Pain, Light Headedness Gastrointestinal: No Symptoms Reported Genitourinary: No Symptoms Reported Musculoskeletal: No Symptoms Reported Skin: No Symptoms Reported Neurological: Weakness - Physical Exam Vital Signs: Temperature 97.8 F Pulse Rate [Left] 72 Pulse Rate 82 Respiratory Rate 20 Blood Pressure [Left Arm] 130/74 Blood Pressure 117/75 O2 Sat by Pulse Oximetry 96 Oriented: Normal Eyes: Normal Ear: Normal Nose: Normal Throat: Normal Respiratory: Clear Throughout Cardiovascular: Normal : Normal Auscultation: Bowel Sounds: Normal Palpation: Normal Skin: Normal Musculoskeletal: Normal Psychiatric: Normal Mood Description: Calm Affect: Normal Speech Pattern: Clear - Assessment/Plan (1) Nonspecific chest pain Status: Acute Plan: ADMIT, SERIAL CARDIAC ENZYMES AND EKGS, HEMOCYTE PLUS 1 TABLET DAILY (2) Shortness of breath Status: Acute (3) Anemia Qualifiers: Anemia type: unspecified type Qualified Code(s): D64.9 - Anemia, unspecified Status: Acute - Allergies Allergies/Adverse Reactions: Allergies Allergy/AdvReac Type Severity Reaction Status Date / Time No Known Drug Allergies Allergy Verified 10/08/21 17:20 [NKDA]
[2021-10-10] MEDS: PROTONIX TAB 40 MG PO SCH (10:35)
[2021-10-10] MEDS: NORCO 10/325 TAB PO PRN ×2 (13:57→21:40)
[2021-10-10] MEDS: NICOTINE PATCH TD SCH (13:58)
[2021-10-10 15:29] LABS: BILIRUBIN,URINE NEGATIVE (NEGATIVE); BLOOD/HEMOGLOBIN,URINE NEGATIVE (NEGATIVE); GLUCOSE, URINE NEGATIVE (NEGATIVE); KETONES,URINE NEGATIVE (NEGATIVE); LEUKOCYTE ESTERASE ,URINE NEGATIVE (NEGATIVE); NITRITES,URINE NEGATIVE (NEGATIVE); PROTEIN,URINE NEGATIVE (NEGATIVE); UROBILINOGEN,URINE NORMAL (NORMAL)
[2021-10-10 15:32] LABS: APPEARANCE,URINE CLEAR (CLEAR); COLOR,URINE YELLOW (YELLOW)
[2021-10-10] MEDS: HEMOCYTE-PLUS PO SCH (21:39)
[2021-10-11] MEDS: NORCO 10/325 TAB PO PRN (04:19)
[2021-10-11 05:09] LABS: BASOPHILS # (AUTO) 0.1 X10^3/uL (0.0-0.1); BASOPHILS % (AUTO) 1.3 % (0.2-1.0); EOSINOPHILS # (AUTO) 0.2 x10^3/uL (0.0-0.2); EOSINOPHILS % (AUTO) 2.2 % (0.9-2.9); HEMATOCRIT 28.3 % (42.0-54.0); HEMOGLOBIN 9.4 g/dL (13.5-18.0); LYMPHOCYTES % (AUTO) 42.5 % (21.0-51.0); MEAN CORPUSCULAR HEMOGLOBIN 24.7 pg (27.0-34.0); MEAN CORPUSCULAR HGB CONC 33.2 g/dL (33.0-35.0); MEAN CORPUSCULAR VOLUME 74.5 fL (80.0-100.0); MEAN PLATELET VOLUME 7.5 fL (7.4-11.0); MONOCYTES # (AUTO) 0.4 x10^3/uL (0.3-0.8); MONOCYTES % (AUTO) 6.1 % (0.0-13.0); NEUTROPHILS # (AUTO) 3.4 x10^3/uL (2.2-4.8); NEUTROPHILS % (AUTO) 47.9 % (42.0-75.0); PLATELET COUNT 471 X10^3/uL (150.0-450.0); RED BLOOD COUNT 3.79 X10^6/uL (4.7-6.0); RED CELL DISTRIBUTION WIDTH 15.7 % (11.6-16.5); WHITE BLOOD COUNT 7.1 X10^3/uL (3.6-10.0)
[2021-10-11 05:43] LABS: MICROCYTOSIS SLIGHT; PLATELET MORPHOLOGY COMMENT NORMAL (NORMAL)
[2021-10-11 05:48] LABS: ALANINE AMINOTRANSFERASE 28 Units/L (12-78); ALBUMIN 3.1 g/dL (3.4-5.0); ALKALINE PHOSPHATASE 174 Units/L (46-116); ASPARTATE AMINO TRANSFERASE 14 Units/L (15-37); BLOOD UREA NITROGEN 12 mg/dL (7-18); CALCIUM 7.9 mg/dL (8.5-10.1); CARBON DIOXIDE 23.6 mmol/L (21-32); CHLORIDE 102 mmol/L (98-107); COR CA(FOR HYPOALB) 8.6 mg/dL (8.5-10.1); COR NA(FOR HYPERGLY) 138 mmol/L (136-145); CREATININE 0.94 mg/dL (0.70-1.30); SODIUM 138 mmol/L (136-145); eGFR NON BLACK RACES > 60 (>60)
[2021-10-11 07:42] VITALS: BP 139/87
[2021-10-11] MEDS: PROTONIX TAB 40 MG PO SCH (08:46)
--- NOTE | 2021-10-11 09:18 | PCM.PROG ---
Progress Note - Progress Note for Day of Date of Exam: 10/10/21 - Subjective Subjective: WAS ADMITTED FOR TREATMENT OF CHEST PAIN RULE OUT ACUTE CT, SHORTNESS OF BREATH, AND ANEMIA. TODAY, HE IS ALERT AND ORIENTED, LYING IN BED ON MORNING ROUNDS. HE CONTINUES WITH SHORTNESS OF BREATH AT TIMES. HE DENIES CURRENT CHEST PAIN. ON EXAMINATION, HEART IS REGULAR IN RATE AND RHYTHM. BILATERAL LUNGS ARE CLEAR TO AUSCULTATION. ABDOMEN IS ROUND, SOFT, AND NON- TENDER WITH NORMAL BOWEL SOUNDS NOTED IN ALL QUADRANTS. HIS VITALS THIS MORNING ARE: 97.8-72-20-96%-130/74. LABS WERE OBTAINED. ABNORMAL LAB VALUES INCLUDE THE FOLLOWING: RBC 3.87, HGB 9.5, HCT 28.9, TOTAL BILI 0.10, ALK PHOS 197. CARDIAC ENZYMES HAVE BEEN WITHIN NORMAL LIMITS. NO CHANGES NOTED TO EKGS. HE IS CURRENTLY RECEIVING HEMOCYTE PLUS 1 TABLET DAILY, PROTONIX 40MG 1 TABLET DAILY, VISTARIL 25-50MG PO Q8H PRN, NORCO 10/325MG 1 TABLET POI Q6H PRN PAIN. WE WILL CONTINUE WITH CURRENT PLAN OF CARE TODAY. WE WILL MONITOR HIS HEMOGLOBIN. OTHERWISE, WE WILL FOLLOW UP WITH AM LABS AND CONTINUE TO MONITOR. TIME SPENT ON CLINICAL ASSESSMENT, REVIEWING LABS AND IMAGING, DECISION MAKING, AND DOCUMENTATION GREATER THAN 45 MINUTES. - Past Medical Family Social History Past Med/Fam/Surg Hx: No changes since H&P Allergies: Allergies No Known Drug Allergies [NKDA] Allergy (Verified 10/08/21 17:20) - Review of Systems ROS: No change since H&P - Vital Signs and I&O's Vital Signs: Temperature 98.0 F Pulse Rate [Left] 105 Pulse Rate 82 Respiratory Rate 20 Blood Pressure [Left Arm] 139/87 Blood Pressure 117/75 O2 Sat by Pulse Oximetry 100 Intake and Output: Intake & Output 10/08/21 10/09/21 10/10/21 10/11/21 11:59 11:59 11:59 11:59 Intake Total 252 / 252 1500 / 1500 2140 / 2140 Balance 252 / 252 1500 / 1500 2140 / 2140 - Physical Exam Oriented: Normal Eyes: Normal Ear: Normal Nose: Normal Throat: Normal Respiratory: Generalized, Diminished Cardiovascular: Normal : Normal Auscultation: Bowel Sounds: Normal Palpation: Normal Skin: Normal Musculoskeletal: Normal Psychiatric: Normal Mood Description: Calm Affect: Normal Speech Pattern: Clear, Appropriate - Laboratory and Diagnostics Result Diagrams: 10/11/21 04:40 10/11/21 04:40 Labs: Laboratory WBC 7.1 X10^3/uL (3.6-10.0) 10/11/21 04:40 RBC 3.79 X10^6/uL (4.7-6.0) L 10/11/21 04:40 Hgb 9.4 g/dL (13.5-18.0) L 10/11/21 04:40 Hct 28.3 % (42.0-54.0) L 10/11/21 04:40 MCV 74.5 fL (80.0-100.0) L 10/11/21 04:40 MCH 24.7 pg (27.0-34.0) L 10/11/21 04:40 MCHC 33.2 g/dL (33.0-35.0) 10/11/21 04:40 RDW 15.7 % (11.6-16.5) 10/11/21 04:40 Plt Count 471 X10^3/uL (150.0-450.0) H 10/11/21 04:40 Plt Count Comment Increased (ADEQUATE) 10/11/21 04:40 MPV 7.5 fL (7.4-11.0) 10/11/21 04:40 Neut % (Auto) 47.9 % (42.0-75.0) 10/11/21 04:40 Lymph % (Auto) 42.5 % (21.0-51.0) 10/11/21 04:40 [place] % (Auto) 6.1 % (0.0-13.0) 10/11/21 04:40 Eos % (Auto) 2.2 % (0.9-2.9) 10/11/21 04:40 Baso % (Auto) 1.3 % (0.2-1.0) H 10/11/21 04:40 Neut # (Auto) 3.4 x10^3/uL (2.2-4.8) 10/11/21 04:40 Lymph # (Auto) 3.0 X10^3/uL (1.3-2.9) H 10/11/21 04:40 [place] # (Auto) 0.4 x10^3/uL (0.3-0.8) 10/11/21 04:40 Eos # (Auto) 0.2 x10^3/uL (0.0-0.2) 10/11/21 04:40 Baso # (Auto) 0.1 X10^3/uL (0.0-0.1) 10/11/21 04:40 Absolute Nucleated RBC 0.0 /100WBC 10/11/21 04:40 Plt Morphology Comment Normal (NORMAL) 10/11/21 04:40 RBC Morphology Abnormal (NORMAL) 10/11/21 04:40 Hypochromasia Slight A 10/10/21 07:26 Microcytosis Slight A 10/11/21 04:40 PT 14.0 SECONDS (11.8-14.3) 10/08/21 17:48 INR Target Range - 10/08/21 17:48 INR 1.13 (0.8-1.3) 10/08/21 17:48 APTT 33.5 SECONDS (22.9-36.5) 10/08/21 17:48 PTT Comment - 10/08/21 17:48 D-Dimer 0.39 ug/ml (0.0-0.57) 10/08/21 17:48 Sodium 138 mmol/L (136-145) 10/11/21 04:40 Corrected Sodium 138 mmol/L (136-145) 10/11/21 04:40 Potassium 3.6 mmol/L (3.5-5.1) 10/11/21 04:40 Chloride 102 mmol/L (98-107) 10/11/21 04:40 Carbon Dioxide 23.6 mmol/L (21-32) 10/11/21 04:40 BUN 12 mg/dL (7-18) 10/11/21 04:40 Creatinine 0.94 mg/dL (0.70-1.30) 10/11/21 04:40 Est GFR (MDRD) Af Amer > 60 (>60) 10/11/21 04:40 Est GFR (MDRD) Non-Af > 60 (>60) 10/11/21 04:40 Glucose 116 mg/dL (65-99) H 10/11/21 04:40 Calcium 7.9 mg/dL (8.5-10.1) L 10/11/21 04:40 Corrected Calcium 8.6 mg/dL (8.5-10.1) 10/11/21 04:40 Iron 203 ug/dL (50-175) H 10/09/21 11:44 Transferrin 358 mg/dL (202-364) 10/09/21 11:44 Ferritin 22 ng/mL (26-388) L 10/09/21 11:44 Total Bilirubin 0.10 mg/dL (0.2-1.0) L 10/11/21 04:40 AST 14 Units/L (15-37) L 10/11/21 04:40 ALT 28 Units/L (12-78) 10/11/21 04:40 Alkaline Phosphatase 174 Units/L (46-116) H 10/11/21 04:40 Creatine Kinase 51 Units/L (39-308) 10/09/21 11:44 CK-MB (CK-2) 1.0 ng/mL (0-4.0) 10/09/21 11:44 CK/CKMB % Calc 2.0 % (<4) 10/09/21 11:44 Troponin I < 0.02 ng/mL (0-1.5) 10/09/21 11:44 Total Protein 7.0 g/dL (6.4-8.2) 10/11/21 04:40 Albumin 3.1 g/dL (3.4-5.0) L 10/11/21 04:40 Globulin 3.9 g/dL (2.5-4.5) 10/11/21 04:40 Albumin/Globulin Ratio 0.8 Ratio (1.1-2.1) L 10/11/21 04:40 Vitamin B12 370 pg/mL (193-986) 10/09/21 11:44 Folate > 20.0 ng/mL (>8.6) 10/09/21 11:44 Specimen Type Clean catch urine 10/10/21 15:18 Urine Color Yellow (YELLOW) 10/10/21 15:18 Urine Appearance Clear (CLEAR) 10/10/21 15:18 Urine pH 5.0 (5.0 - 8.0) 10/10/21 15:18 Ur Specific [place] 1.015 (1.000-1.030) 10/10/21 15:18 Urine Protein Negative (NEGATIVE) 10/10/21 15:18 Urine Glucose (UA) Negative (NEGATIVE) 10/10/21 15:18 Urine Ketones Negative (NEGATIVE) 10/10/21 15:18 Urine Occult Blood Negative (NEGATIVE) 10/10/21 15:18 Urine Nitrite Negative (NEGATIVE) 10/10/21 15:18 Urine Bilirubin Negative (NEGATIVE) 10/10/21 15:18 Urine Urobilinogen Normal (NORMAL) 10/10/21 15:18 Ur Leukocyte Esterase Negative (NEGATIVE) 10/10/21 15:18 SARS CoV-2 RNA Rapid XIMENA Negative (NEGATIVE) 10/08/21 23:10 - Plan (1) Nonspecific chest pain Status: Acute Plan: MONITOR HGB, HEMOCYTE PLUS 1 TABLET DAILY, PROTONIX 40MG 1 TABLET DAILY, VISTARIL 25-50MG PO Q8H PRN, NORCO 10/325MG 1 TABLET POI Q6H PRN PAIN. (2) Shortness of breath Status: Acute (3) Anemia Status: Acute Qualifiers: Anemia type: unspecified type Qualified Code(s): D64.9 - Anemia, unspecified
[2021-10-11] MEDS: NICOTINE PATCH TD SCH (09:34)
== END 2021-10-11 11:30 | disposition home or self-care (01) ==
LOC: MED/SURG 17:05 → ER 17:05 → MED/SURG 10-09 02:30
PROVIDERS: ADMIT Internal Medicine; ATTEND Obstetrics & Gynecology Obstetrics
DX: E87.1 Hypo-osmolality and hyponatremia; K21.9 Gastro-esophageal reflux disease without esophagitis; Z20.822 Contact with and (suspected) exposure to COVID-19; I10 Essential (primary) hypertension; R42 Dizziness and giddiness; D64.89 Other specified anemias; Z79.899 Other long term (current) drug therapy; M47.22 Other spondylosis with radiculopathy, cervical region; R07.89 Other chest pain; R06.02 Shortness of breath; R94.31 Abnormal electrocardiogram [ECG] [EKG]

== ENCOUNTER 2022-06-15 22:34 | Inpatient (IN) ==
--- NOTE | 2022-06-15 22:53 | DR.WEAKNES ---
HPI Time Seen Time Seen by Provider: 06/15/22 22:50 HPI Comment HPI Comment: A 57 y/o male presenting via EMS with a post ictal state upon EMS arrival to the residence. Reportedly slow to response to verbal inquiry. He had initially declined transportation to the ED. But family called EMS shortly again stating his symptoms are worsening. Thus he was brought here. I later called the house and spoke with his . She states that had left him in a room for about 2 minutes. Upon her return, she noticed him drooling on the Lt side of his mouth and staring blankly. He was not responding to her inquiries. She did not witness any body tremors, shaking or so. Source History Provided: EMS Mode of Arrival Mode of Arrival: EMS Timing Since onset, symptoms are:: Resolved Symptom Onset: Unknown Context Onset: Spontaneous History of: CVA Stroke Symptoms: Acute confusion Associated Signs and Symptoms Associated Signs and Symptoms: Altered Mental Status PMH PMH Past Medical History: GERD and Hypertension Past Surgical History: Yes Surgical History: Appendectomy and Cholecystectomy Family History Family Medical History: Diabetes Mellitus, Cancer and Hypertension Social History Do you use any recreational Drugs:: Yes (MARIJUANA) ROS Review of Systems Constitutional: No Symptoms Reported Eyes: No Symptoms Reported ENTM: No Symptoms Reported Respiratoy: No Symptoms Reported Cardiovascular: No Symptoms Reported Gastrointestinal/Abdominal: No Symptoms Reported Genitourinary: No Symptoms Reported Neurological: No Symptoms Reported Musculoskeletal: No Symptoms Reported Integumentary: No Symptoms Reported Hematologic/Lymphatic: No Symptoms Reported Endocrine: No Symptoms Reported Psychiatric: No Symptoms Reported All Other Systems: Reviewed and Negative PE Vital Signs Vitals: Temperature 99.0 F Pulse Rate 95 Respiratory Rate 17 Blood Pressure [Left Arm] 146/73 Blood Pressure 134/89 O2 Sat by Pulse Oximetry 98 General Limitations: Physical Limitation General Appearance: Alert and In No Apparent Distress Head Head Exam: Normal Inspection, Atraumatic and Normocephalic Eyes Eye exam: Normal Appearance, PERRL and EOMI ENT ENT Exam: Normal Exam, Normal Oropharynx, Normal External Ear Exam, Mucous Membranes Moist and TM's Normal Bilaterally Neck Neck Exam: Normal Inspection, Full ROM and Trachea Midline Chest Chest Inspection: Normal Inspection and Symmetric Chest Wall Rise Respiratory Respiratory Exam: Normal Lung Sounds Bilat Cardiovascular Cardiovascular Exam: Normal Rhythm, Tachycardia, Normal Heart Sounds, +S1 and +S2 Abdominal Exam Abdominal Exam: Normal Inspection, Normal Bowel Sounds and Soft Extremities Extremities Exam: Other (Lt. sided hemiparesis) Back Back Exam: Normal Inspection and Full ROM Neurologic Neurological Exam: Alert and Oriented X3 Speech: Fluid Speech Sensory Exam Lower Extremity: Light Touch: Left Abnormal Psychiatric Psychiatric Exam: Normal Affect and Normal Mood Skin Skin Exam: Dry, Intact and Normal Color COURSE Treatment Treatment: The pt. had an emergent CT Scan of the Brain, and a Tele-neuro consult. There was no evidence for acute CVA. He was given a loading dose of Keppra. He had IV Cardzem x 2 and was started on a Cardizem drip. Plan is admit him to Obs. for theses reasons. I discussed this with him and I had nursing staff inform his spouse via telephone. Reevaluation 1st: Improved Consultation Consultation Comments: Name: Brigette DUENAS#: [id number]: [id number]: [id number]: MLocation: EROrder Number(s): [id number](s):CHEST, 1 VIEW Ordering Physician: OCTAVIA ZUNIGA Primary Care: JOLENE YOUNG Service Date: 06/15/22 Service Time: 2300 HISTORY PT C/O LEFT SIDED NUMBNESS HX OF CVA, GERD, HTN SX: EARL ROCHE STUDY CHEST, 1 VIEW COMPARISON 05/07/2022 FINDINGS The trachea is midline. The cardiac silhouette is unremarkable. Chronic interstitial lung changes with flattening of the diaphragm consistent with COPD is observed. The lungs are clear without focal infiltrate or effusion. The bony thorax is unremarkable. IMPRESSION COPD. No active cardiopulmonary disease. Electronically signed by: Raleigh Lucas (Jun 15, 2022 23:18:30) Report Electronically signed: 06/15/22 [id number] CC: Octavia Zuniga Education/Counseling Education/Counseling: Patient, Family, Education and Counseling Educated On: Treatment, Diagnosis, Prognosis and Needs for Follow Up ROR Labs Reviewed Laboratory Results Reviewed?: Yes Result Diagrams: 06/15/22 22:53 06/15/22 22:53 Laboratory: WBC 10.5 X10^3/uL (3.6-10.0) H 06/15/22 22:53 RBC 4.27 X10^6/uL (4.7-6.0) L 06/15/22 22:53 Hgb 12.7 g/dL (13.5-18.0) L 06/15/22 22:53 Hct 36.2 % (42.0-54.0) L 06/15/22 22:53 MCV 84.8 fL (80.0-100.0) 06/15/22 22:53 MCH 29.9 pg (27.0-34.0) 06/15/22 22:53 MCHC 35.2 g/dL (33.0-35.0) H 06/15/22 22:53 RDW 12.6 % (11.6-16.5) 06/15/22 22:53 Plt Count 238 X10^3/uL (150.0-450.0) 06/15/22 22:53 MPV 7.2 fL (7.4-11.0) L 06/15/22 22:53 Neut % (Auto) 82.2 % (42.0-75.0) H 06/15/22 22:53 Lymph % (Auto) 12.9 % (21.0-51.0) L 06/15/22 22:53 [place] % (Auto) 4.1 % (0.0-13.0) 06/15/22 22:53 Eos % (Auto) 0.6 % (0.9-2.9) L 06/15/22 22:53 Baso % (Auto) 0.2 % (0.2-1.0) 06/15/22 22:53 Neut # (Auto) 8.7 x10^3/uL (2.2-4.8) H 06/15/22 22:53 Lymph # (Auto) 1.4 X10^3/uL (1.3-2.9) 06/15/22 22:53 [place] # (Auto) 0.4 x10^3/uL (0.3-0.8) 06/15/22 22:53 Eos # (Auto) 0.1 x10^3/uL (0.0-0.2) 06/15/22 22:53 Baso # (Auto) 0.0 X10^3/uL (0.0-0.1) 06/15/22 22:53 Absolute Nucleated RBC 0.0 /100WBC 08/31/22 22:53 PT 14.0 SECONDS (11.8-14.3) 06/15/22 22:53 INR Target Range - 06/15/22 22:53 INR 1.12 (0.8-1.3) 06/15/22 22:53 APTT 31.9 SECONDS (22.9-36.5) 06/15/22 22:53 PTT Comment - 06/15/22 22:53 Fibrinogen 506 mg/dL (239-489) H 06/15/22 22:53 Sodium 142 mmol/L (136-145) 06/15/22 22:53 Corrected Sodium 143 mmol/L (136-145) 06/15/22 22:53 Potassium 3.0 mmol/L (3.5-5.1) L 06/15/22 22:53 Chloride 103 mmol/L (98-107) 06/15/22 22:53 Carbon Dioxide 30.7 mmol/L (21-32) 06/15/22 22:53 BUN 10 mg/dL (7-18) 06/15/22 22:53 Creatinine 0.67 mg/dL (0.70-1.30) L 06/15/22 22:53 Est GFR (MDRD) Af Amer > 60 (>60) 06/15/22 22:53 Est GFR (MDRD) Non-Af > 60 (>60) 06/15/22 22:53 Glucose 142 mg/dL (65-99) H 06/15/22 22:53 Calcium 8.3 mg/dL (8.5-10.1) L 06/15/22 22:53 Corrected Calcium TNP 06/15/22 22:53 Total Bilirubin 0.10 mg/dL (0.2-1.0) L 06/15/22 22:53 AST 11 Units/L (15-37) L 06/15/22 22:53 ALT 17 Units/L (12-78) 06/15/22 22:53 Alkaline Phosphatase 148 Units/L (46-116) H 06/15/22 22:53 Creatine Kinase 43 Units/L (39-308) 06/15/22 22:58 Troponin I High Sens 5.3 ng/L (4.0-60.0) 06/15/22 22:58 Total Protein 7.3 g/dL (6.4-8.2) 06/15/22 22:53 Albumin 3.5 g/dL (3.4-5.0) 06/15/22 22:53 Globulin 3.8 g/dL (2.5-4.5) 06/15/22 22:53 Albumin/Globulin Ratio 0.9 Ratio (1.1-2.1) L 06/15/22 22:53 Triglycerides 173 mg/dL (0-150) H 06/15/22 22:53 Cholesterol 114 mg/dL (0-200) 06/15/22 22:53 LDL Cholesterol, Calc 46 mg/dL (0-100) 06/15/22 22:53 HDL Cholesterol 33 mg/dL (40-60) L 06/15/22 22:53 Cholesterol/HDL Ratio 3.5 (0.0-5.0) 06/15/22 22:53 SARS-CoV-2 (PCR) Negative (NEGATIVE) 06/16/22 00:58 EKG Rate: 128 Ruth: Normal Rhythm: Junctional Block: None Hypertrophy: None ST: Normal Opioid Opioid Risk Tool Age (Jeff box if 16-45): No History of Preadolescent Sexual Abuse: No Total: 0 Total Score Risk Category: Low Risk Copyright: [facility] predicting aberrant behaviors Discharge Plan Diagnosis Discharge Problem: Post-ictal state, Sustained SVT, Hypertension, uncontrolled, CVA, old, hemiparesis, Acute hypokalemia Discharge Plan Patient Disposition: 09 ADMITTED INPATIENT Condition: Stable Orders to Discharge Patient Discharge Orders: Transfer (Routine); Ordered 06/16/22 Ordered By: OCTAVIA ZUNIGA ADDITIONAL NOTES Additional Notes Additional Notes: Name: Brigette DUENAS#: [id number]: [id number]: [id number]: MLocation: EROrder Number(s): [id number](s):BRAIN W/O CON Ordering Physician: OCTAVIA ZUNIGA Primary Care: JOLENE YOUNG Service Date: 06/15/22 Service Time: 2236 History: LEFT SIDED WEAKNESS HTN; GERD; Sx: Appy; Earl Exam :BRAIN W/O CON Technique: Thin section axial ct images of the brain were obtained from the foramen magnum to the vertex without contrast. Sagittal and coronal reconstructions were also performed. Comparison: 12/29/2021 Findings: The ventricles are within normal limits in size. Cavum septum pellucidum, normal variant present. No midline shift, mass effect or extra-axial fluid collections. No evidence of acute hemorrhage or acute macroinfarction. There is a large area of encephalomalacia involving the distribution of the right MCA due to old infarct, new from prior study. There is mild ex vacuo dilatation of the adjacent right lateral ventricle. The visualized paranasal sinuses and mastoids are unremarkable. The calvarium is intact. Impression: Large area of encephalomalacia involving the distribution of the right MCA due to old infarct. No acute intracranial pathology. Electronically signed by: Raleigh Lucas (Jun 15, 2022 22:56:53) Report Electronically signed: 06/15/22 [id number] CC: Octavia Zuniga
--- NOTE | 2022-06-15 22:58 | CT ---
History: LEFT SIDED WEAKNESS HTN; GERD; Sx: Appy; CholeExam :BRAIN W/O CONTechnique: Thin section axial ct images of the brain were obtained from the foramen magnum to the vertex without contrast. Sagittal and coronal reconstructions were also performed.Comparison: 12/29/2021Findings:The ventricles are within normal limits in size. Cavum septum pellucidum, normal variant present. No midline shift, mass effect or extra-axial fluid collections. No evidence of acute hemorrhage or acute macroinfarction. There is a large area of encephalomalacia involving the distribution of the right MCA due to old infarct, new from prior study. There is mild ex vacuo dilatation of the adjacent right lateral ventricle.The visualized paranasal sinuses and mastoids are unremarkable. The calvarium is intact.Impression:Large area of encephalomalacia involving the distribution of the right MCA due to old infarct.No acute intracranial pathology.Electronically signed by: Raleigh Lucas (Jun 15, 2022 22:56:53)
[2022-06-15 23:03] LABS: BASOPHILS % (AUTO) 0.2 % (0.2-1.0); EOSINOPHILS # (AUTO) 0.1 x10^3/uL (0.0-0.2); EOSINOPHILS % (AUTO) 0.6 % (0.9-2.9); HEMATOCRIT 36.2 % (42.0-54.0); HEMOGLOBIN 12.7 g/dL (13.5-18.0); LYMPHOCYTES # (AUTO) 1.4 X10^3/uL (1.3-2.9); LYMPHOCYTES % (AUTO) 12.9 % (21.0-51.0); MEAN CORPUSCULAR HEMOGLOBIN 29.9 pg (27.0-34.0); MEAN CORPUSCULAR HGB CONC 35.2 g/dL (33.0-35.0); MEAN CORPUSCULAR VOLUME 84.8 fL (80.0-100.0); MEAN PLATELET VOLUME 7.2 fL (7.4-11.0); MONOCYTES # (AUTO) 0.4 x10^3/uL (0.3-0.8); MONOCYTES % (AUTO) 4.1 % (0.0-13.0); NEUTROPHILS # (AUTO) 8.7 x10^3/uL (2.2-4.8); NEUTROPHILS % (AUTO) 82.2 % (42.0-75.0); RED BLOOD COUNT 4.27 X10^6/uL (4.7-6.0); RED CELL DISTRIBUTION WIDTH 12.6 % (11.6-16.5); WHITE BLOOD COUNT 10.5 X10^3/uL (3.6-10.0)
[2022-06-15 23:11] LABS: INR 1.12 (0.8-1.3)
--- NOTE | 2022-06-15 23:21 | RAD ---
HISTORYPT C/O LEFT SIDED NUMBNESS HX OF CVA, GERD, HTN SX: APPY, CHOLESTUDYCHEST, 1 [id number]/2022FINDINGSThe trachea is midline. The cardiac silhouette is unremarkable. Chronic interstitial lung changes with flattening of the diaphragm consistent with COPD is observed. The lungs are clear without focal infiltrate or effusion. The bony thorax is unremarkable.IMPRESSIONCOPD.No active cardiopulmonary disease.Electronically signed by: Raleigh Lucas (Jun 15, 2022 23:18:30)
[2022-06-15 23:24] LABS: ALANINE AMINOTRANSFERASE 17 Units/L (12-78); ALBUMIN 3.5 g/dL (3.4-5.0); ALKALINE PHOSPHATASE 148 Units/L (46-116); ASPARTATE AMINO TRANSFERASE 11 Units/L (15-37); BLOOD UREA NITROGEN 10 mg/dL (7-18); CALCIUM 8.3 mg/dL (8.5-10.1); CARBON DIOXIDE 30.7 mmol/L (21-32); CHLORIDE 103 mmol/L (98-107); CHOL/HDL RATIO 3.5 (0.0-5.0); CHOLESTEROL 114 mg/dL (0-200); COR NA(FOR HYPERGLY) 143 mmol/L (136-145); CREATININE 0.67 mg/dL (0.70-1.30); HDL CHOLESTEROL 33 mg/dL (40-60); SODIUM 142 mmol/L (136-145); TOTAL PROTEIN 7.3 g/dL (6.4-8.2); TRIGLYCERIDES 173 mg/dL (0-150); eGFR NON BLACK RACES > 60 (>60)
[2022-06-15] MEDS ORDERED: KEPPRA INJ 500 MG in NS 100 ML IV 100 ML IV ONE (23:40)
[2022-06-15] MEDS ORDERED: KEPPRA INJ 1,500 MG in NS 100 ML IV 100 ML IV ONE (23:43)
[2022-06-15] MEDS ORDERED: NS 100 ML IV 100 ML ONE (23:44)
[2022-06-15] MEDS ORDERED: KLOR-CON ONE (23:44)
[2022-06-15] MEDS: KLOR-CON PO ONE ×2 (23:48→23:51)
[2022-06-15] MEDS ORDERED: CARDIZEM INJ 50 MG VIAL IVP ONE (23:49)
[2022-06-15] MEDS ORDERED: K-DUR TAB 20 MEQ PO ONE ×2 (23:49→23:52)
[2022-06-15] MEDS ORDERED: CARDIZEM INJ 125 MG VIAL ONE (23:52)
[2022-06-16] MEDS ORDERED: CARDIZEM INJ 50 MG VIAL IVP ONE (00:42)
[2022-06-16] MEDS ORDERED: DILTIAZEM 125mg/125mL-0.7%NACL 125 MG/125 ML PLAST..BAG IV PRN (00:43)
[2022-06-16] MEDS ORDERED: NS 100 ML IV 100 ML ONE ×2 (00:46→06:09)
[2022-06-16] MEDS ORDERED: CARDIZEM INJ 125 MG VIAL ONE (00:46)
[2022-06-16 02:45] LABS: BILIRUBIN,URINE NEGATIVE (NEGATIVE); BLOOD/HEMOGLOBIN,URINE 1+ (NEGATIVE); GLUCOSE, URINE NEGATIVE (NEGATIVE); KETONES,URINE 1+ (NEGATIVE); LEUKOCYTE ESTERASE ,URINE NEGATIVE (NEGATIVE); NITRITES,URINE NEGATIVE (NEGATIVE); PROTEIN,URINE 2+ (NEGATIVE); UROBILINOGEN,URINE NORMAL (NORMAL)
[2022-06-16 02:54] LABS: APPEARANCE,URINE HAZY (CLEAR); COLOR,URINE YELLOW (YELLOW)
[2022-06-16 02:55] LABS: BACTERIA,URINE TRACE /HPF (NEGATIVE); RBC,URINE 0-2 /HPF (0-3); SPERM,URINE FEW /HPF (NEGATIVE); SQUAMOUS EPITHELIAL CELL,UR RARE /HPF (NEGATIVE)
[2022-06-16] MEDS: NORCO 5/325 MG TAB PO PRN ×4 (03:43→23:37)
[2022-06-16 03:57] VITALS: BMI 20.8
[2022-06-16] MEDS ORDERED: XOPENEX 1.25 MG/3 ML NEBULE NEB ONE (04:46)
[2022-06-16] MEDS: XOPENEX 1.25 MG/3 ML NEBULE NEB SCH ×3 (05:01→20:59)
[2022-06-16 05:42] LABS: ALANINE AMINOTRANSFERASE 16 Units/L (12-78); ALBUMIN 3.4 g/dL (3.4-5.0); ALKALINE PHOSPHATASE 144 Units/L (46-116); ASPARTATE AMINO TRANSFERASE 11 Units/L (15-37); BLOOD UREA NITROGEN 7 mg/dL (7-18); CALCIUM 8.3 mg/dL (8.5-10.1); CARBON DIOXIDE 30.4 mmol/L (21-32); CHLORIDE 103 mmol/L (98-107); COR NA(FOR HYPERGLY) 142 mmol/L (136-145); CREATININE 0.52 mg/dL (0.70-1.30); MAGNESIUM 1.6 mg/dL (1.7-2.9); SODIUM 142 mmol/L (136-145); eGFR NON BLACK RACES > 60 (>60)
[2022-06-16 05:43] LABS: BASOPHILS % (AUTO) 0.5 % (0.2-1.0); EOSINOPHILS % (AUTO) 0.3 % (0.9-2.9); HEMATOCRIT 35.1 % (42.0-54.0); HEMOGLOBIN 12.3 g/dL (13.5-18.0); LYMPHOCYTES # (AUTO) 1.4 X10^3/uL (1.3-2.9); LYMPHOCYTES % (AUTO) 21.9 % (21.0-51.0); MEAN CORPUSCULAR HEMOGLOBIN 29.2 pg (27.0-34.0); MEAN CORPUSCULAR VOLUME 83.3 fL (80.0-100.0); MEAN PLATELET VOLUME 7.8 fL (7.4-11.0); MONOCYTES # (AUTO) 0.3 x10^3/uL (0.3-0.8); MONOCYTES % (AUTO) 4.3 % (0.0-13.0); NEUTROPHILS # (AUTO) 4.6 x10^3/uL (2.2-4.8); RED BLOOD COUNT 4.21 X10^6/uL (4.7-6.0); RED CELL DISTRIBUTION WIDTH 12.7 % (11.6-16.5); WHITE BLOOD COUNT 6.4 X10^3/uL (3.6-10.0)
[2022-06-16] MEDS ORDERED: KLOR-CON PO PRN (05:58)
[2022-06-16] MEDS: K-DUR TAB 20 MEQ PO PRN (06:15)
[2022-06-16] MEDS: MAGNESIUM SULFATE 1 GRAM/100 mL PREMIX 1 G/100 ML BAG IV PRN ×2 (06:29→09:11)
[2022-06-16] MEDS: PULMICORT NEB TX 0.5 MG NEB SCH ×2 (08:30→20:59)
[2022-06-16] MEDS ORDERED: LEXAPRO ONE (09:38)
[2022-06-16] MEDS: ZESTRIL TAB 5 MG PO SCH (09:42)
[2022-06-16] MEDS: ASPIRIN EC 81 MG PO SCH (09:43)
[2022-06-16] MEDS: PROTONIX TAB 40 MG PO SCH (09:43)
[2022-06-16] MEDS: ALDACTONE TAB 25 MG PO SCH (09:43)
[2022-06-16] MEDS: LEXAPRO PO SCH (09:43)
[2022-06-16] MEDS: LIPITOR TAB 40 MG PO SCH (09:44)
[2022-06-16] MEDS: TOPROL XL PO SCH (09:45)
[2022-06-16] MEDS ORDERED: MAG-OX TAB PO SCH (10:00)
[2022-06-16] MEDS ORDERED: TOPROL XL PO SCH (10:00)
[2022-06-16] MEDS: NICOTINE PATCH TD SCH (19:45)
[2022-06-17 05:20] LABS: BASOPHILS % (AUTO) 0.1 % (0.2-1.0); EOSINOPHILS % (AUTO) 0.5 % (0.9-2.9); HEMATOCRIT 35.3 % (42.0-54.0); HEMOGLOBIN 12.4 g/dL (13.5-18.0); LYMPHOCYTES # (AUTO) 1.5 X10^3/uL (1.3-2.9); LYMPHOCYTES % (AUTO) 19.2 % (21.0-51.0); MEAN CORPUSCULAR HEMOGLOBIN 29.4 pg (27.0-34.0); MEAN CORPUSCULAR HGB CONC 35.2 g/dL (33.0-35.0); MEAN CORPUSCULAR VOLUME 83.4 fL (80.0-100.0); MEAN PLATELET VOLUME 7.7 fL (7.4-11.0); MONOCYTES # (AUTO) 0.4 x10^3/uL (0.3-0.8); MONOCYTES % (AUTO) 4.9 % (0.0-13.0); NEUTROPHILS # (AUTO) 5.9 x10^3/uL (2.2-4.8); NEUTROPHILS % (AUTO) 75.3 % (42.0-75.0); RED BLOOD COUNT 4.23 X10^6/uL (4.7-6.0); RED CELL DISTRIBUTION WIDTH 12.6 % (11.6-16.5); WHITE BLOOD COUNT 7.8 X10^3/uL (3.6-10.0)
[2022-06-17 05:28] LABS: ALANINE AMINOTRANSFERASE 18 Units/L (12-78); ALBUMIN 3.6 g/dL (3.4-5.0); ALKALINE PHOSPHATASE 144 Units/L (46-116); ASPARTATE AMINO TRANSFERASE 13 Units/L (15-37); BLOOD UREA NITROGEN 4 mg/dL (7-18); CALCIUM 8.2 mg/dL (8.5-10.1); CARBON DIOXIDE 28.4 mmol/L (21-32); CHLORIDE 101 mmol/L (98-107); CREATININE 0.46 mg/dL (0.70-1.30); SODIUM 138 mmol/L (136-145); TOTAL PROTEIN 7.5 g/dL (6.4-8.2); eGFR NON BLACK RACES > 60 (>60)
[2022-06-17] MEDS: NORCO 5/325 MG TAB PO PRN (05:43)
[2022-06-17] MEDS: K-DUR TAB 20 MEQ PO PRN (05:50)
[2022-06-17] MEDS: XOPENEX 1.25 MG/3 ML NEBULE NEB SCH (06:13)
[2022-06-17] MEDS: PULMICORT NEB TX 0.5 MG NEB SCH (08:00)
[2022-06-17] MEDS ORDERED: LANSOPRAZOLE PO SCH (09:00)
[2022-06-17] MEDS ORDERED: NORCO 10/325 TAB PO PRN (09:23)
[2022-06-17] MEDS: TOPROL XL PO SCH (09:29)
[2022-06-17] MEDS ORDERED: LEXAPRO ONE (09:38)
[2022-06-17] MEDS: LIPITOR TAB 40 MG PO SCH (09:48)
[2022-06-17] MEDS: LEXAPRO PO SCH (09:48)
[2022-06-17] MEDS: ZESTRIL TAB 5 MG PO SCH (09:48)
[2022-06-17] MEDS: ALDACTONE TAB 25 MG PO SCH (09:49)
[2022-06-17] MEDS: ASPIRIN EC 81 MG PO SCH (09:49)
[2022-06-17] MEDS: PROTONIX TAB 40 MG PO SCH (09:49)
[2022-06-17] MEDS: NICOTINE PATCH TD SCH (09:49)
[2022-06-17] MEDS ORDERED: TOPROL XL PO SCH (10:00)
[2022-06-17 11:39] VITALS: BP 186/92
== END 2022-06-17 11:20 | disposition home or self-care (01) | DRG 101 ==
LOC: ER 22:34 → ICU 06-16 02:47
PROVIDERS: ADMIT Internal Medicine; ATTEND Obstetrics & Gynecology Obstetrics
DX: G40.89 Other seizures; I47.1 Supraventricular tachycardia; R94.31 Abnormal electrocardiogram [ECG] [EKG]; I69.398 Other sequelae of cerebral infarction; Z20.822 Contact with and (suspected) exposure to COVID-19; E87.6 Hypokalemia; I10 Essential (primary) hypertension; E53.1 Pyridoxine deficiency; G93.89 Other specified disorders of brain; K21.9 Gastro-esophageal reflux disease without esophagitis; R26.89 Other abnormalities of gait and mobility